=== PATIENT | female | born 1945 | race Caucasian/White ===

== ENCOUNTER → 2016-10-23 | Outpatient (CLI) | payer MEDICARE ==
[~2016-10-23] MED LIST: ACET650S12 PR; ACET650S21 PO; ACID1TAB PO; ALBU2.5V11 NEB; ALPR-475 PO; AMIO200T42 PO; AMLO10TA2 PO; AMLO5TAB2 PO; ASPI-515 PO; ATOR40TA78 PO; BISA10SU2 PR; BISA5TAB5 PO; CHOL200040 PO; DEXT4TAB PO; DOCU100C8 PO; ERGO500017 PO; FENO135C4 PO; FENO145T13 PO; FENO145T32 PO; FLUC100T4 PO; FURO20TA3 PO; GLUC1VIA4 IM; GUAI400T26 PO; HYDR-3307 PO; INSU100C5 SQ-INSULIN; LISI40TA PO; LOVA20TA2 PO; MAGN400T26 PO; METF850T2 PO; METO50TA82 PO; METR500T PO; OMEG300C5 PO; ONDA4SOL2 IV; ONDA4TAB7 PO; OXYC1TAB7 PO; OXYC5CAP4 PO; PANT40TA3 PO; PREN1TAB60 PO; PROC5TAB40 PO; TEMA15CA6 PO; TRAM50TA2 PO; TRAZ50TA18 PO; ZOLP10TA5 PO; dextrose 50% IVPush
== END | disposition home or self-care (01) ==
LOC: CVU 13:18
PROVIDERS: ATTEND Internal Medicine Cardiovascular Disease
DX: I08.1 Rheumatic disorders of both mitral and tricuspid valves (principal); E78.5 Hyperlipidemia, unspecified; I48.91 Unspecified atrial fibrillation; E11.9 Type 2 diabetes mellitus without complications; I10 Essential (primary) hypertension; I37.1 Nonrheumatic pulmonary valve insufficiency; I51.7 Cardiomegaly; Z95.2 Presence of prosthetic heart valve; Z87.891 Personal history of nicotine dependence
CPT/HCPCS: 93306

== ENCOUNTER 2016-10-31 07:39 | Emergency (ER) | payer MEDICARE ==
[~2016-10-31] VITALS: Ht 175.3 cm; Wt 113.0 kg
[2016-10-31] MEDS ORDERED: PLEASE ENTER HEIGHT AND WEIGHT MC SCH (08:00)
[2016-10-31] MEDS ORDERED: SODIUM CHLORIDE 0.9% 1,000ML IVBOLUS ONE (08:00)
[2016-10-31 08:34] LABS: ASPARTATE AMINO TRANSFERASE 37 U/L (15-37); BLOOD UREA NITROGEN 29 mg/dL (7-18)
[2016-10-31] MEDS ORDERED: ONDANSETRON 2MG/ML, 2ML ONE (09:20)
[2016-10-31] MEDS ORDERED: ONDANSETRON 2MG/ML, 2ML IVPush ONE (10:00)
[2016-10-31 10:45] VITALS: BP 137/67
== END 2016-10-31 11:36 | disposition home or self-care (01) ==
LOC: ED 08:48
DX: R19.7 Diarrhea, unspecified (principal); I11.0 Hypertensive heart disease with heart failure; I50.9 Heart failure, unspecified; E11.9 Type 2 diabetes mellitus without complications; Z90.49 Acquired absence of other specified parts of digestive tract; Z98.51 Tubal ligation status; Z87.891 Personal history of nicotine dependence; R10.84 Generalized abdominal pain
CPT/HCPCS: 36415; 80053; 81001; 85025; 87086; 87324; 89055; 96361; 96374; 99285; J2405; J7030

== ENCOUNTER 2017-01-05 17:56 | Inpatient (IN) | payer MEDICARE ==
[~2017-01-05] VITALS: Ht 175.3 cm; Wt 124.4 kg
[2017-01-05] MEDS ORDERED: SODIUM CHLORIDE 0.9% 1,000 ML IV ONE (18:53)
[2017-01-05] MEDS ORDERED: SODIUM CHLORIDE FLUSH 10ML SYR IVF ONE (19:00)
[2017-01-05] MEDS ORDERED: SODIUM CHLORIDE 0.9% 1,000ML IVBOLUS ONE (19:00)
[2017-01-05] MEDS ORDERED: PANTOPRAZOLE 80 MG in SODIUM CHLORIDE 0.9% 50 ML IVPB ONE (19:00)
[2017-01-05] MEDS ORDERED: ONDANSETRON 2MG/ML, 2ML IVPush ONE (19:00)
[2017-01-05] MEDS ORDERED: PANTOPRAZOLE 80 MG in SODIUM CHLORIDE 0.9% 100 ML IV SCH (19:15)
[2017-01-05 19:26] LABS: ASPARTATE AMINO TRANSFERASE 24 U/L (15-37); BLOOD UREA NITROGEN 43 mg/dL (7-18)
[2017-01-05 19:30] LABS: IS PT STATUS REG ER OR PRE ER? YES
[2017-01-05] MEDS ORDERED: OMEP40CA6 PO (20:30)
[2017-01-05] MEDS ORDERED: METF850T2 PO (20:30)
[2017-01-05] MEDS ORDERED: OXYC1TAB7 PO (20:30)
[2017-01-05] MEDS ORDERED: WARF1TAB7 PO (20:30)
[2017-01-05] MEDS ORDERED: POTA20TA14 PO (20:30)
[2017-01-05] MEDS ORDERED: PHYTONADIONE 5 MG TABLET PO ONE (20:30)
[2017-01-05] MEDS ORDERED: ONDANSETRON 2MG/ML, 2ML IV PRN (21:00)
[2017-01-05] MEDS: INSULIN REGULAR 100 UNITS/ML, 3ML VIAL SQ-INSULIN SCH (21:00)
[2017-01-05 21:03] VITALS: BP 152/66
[2017-01-05] MEDS: PANTOPRAZOLE 80 MG in SODIUM CHLORIDE 0.9% 100 ML IV SCH (23:00)
[2017-01-05 23:25] VITALS: BP 136/75
[2017-01-06] VITALS (14 sets, daily range): BP systolic 126–169; BP diastolic 63–83
[2017-01-06 03:12] LABS: PATH.CAST-FLAG NOT PRESENT; SPERM-FLAG NOT PRESENT; SRC-FLAG NOT PRESENT; XTAL-FLAG NOT PRESENT; YLC-FLAG NOT PRESENT
[2017-01-06] MEDS: INSULIN REGULAR 100 UNITS/ML, 3ML VIAL SQ-INSULIN SCH ×3 (07:45→17:04)
[2017-01-06] MEDS: PANTOPRAZOLE 80 MG in SODIUM CHLORIDE 0.9% 100 ML IV SCH ×2 (09:42→20:33)
[2017-01-07] VITALS (18 sets, daily range): BP systolic 113–146; BP diastolic 55–76
[2017-01-07] MEDS: PANTOPRAZOLE 80 MG in SODIUM CHLORIDE 0.9% 100 ML IV SCH ×2 (05:58→15:00)
[2017-01-07] MEDS: INSULIN REGULAR 100 UNITS/ML, 3ML VIAL SQ-INSULIN SCH ×5 (06:00→20:42)
[2017-01-07] MEDS ORDERED: PROPOFOL 10 MG/ML, 20ML ONE (11:10)
[2017-01-07] MEDS ORDERED: ALBUTEROL SULFATE 2.5 MG/3 ML NPPB PRN (12:00)
[2017-01-07] MEDS ORDERED: PROMETHAZINE 25 MG/ML, 1ML IV PRN (12:00)
[2017-01-07] MEDS ORDERED: HYDROmorphone 1 MG/ML, 1ML IV PRN (12:00)
[2017-01-07] MEDS ORDERED: OXYcodone 5 MG/5 ML ORAL.SOL UDC PO PRN (12:00)
[2017-01-07] MEDS ORDERED: hydrALAzine 20 MG/ML, 1ML IV PRN (12:00)
[2017-01-07] MEDS ORDERED: ONDANSETRON 2MG/ML, 2ML IVPush PRN (12:00)
[2017-01-07] MEDS ORDERED: MIDAZOLAM 1 MG/ML, 2ML IV PRN (12:00)
[2017-01-07] MEDS ORDERED: FENTANYL PF 100 MCG/2ML IV PRN (12:00)
[2017-01-07] MEDS ORDERED: MEPERIDINE/PF 25MG/0.5ML IVPush PRN (12:00)
[2017-01-07] MEDS ORDERED: LABETALOL 5MG/ML, 20ML IV PRN (12:00)
[2017-01-07 14:00] LABS: BLOOD UREA NITROGEN 25 mg/dL (7-18)
[2017-01-07 14:32] LABS: ANISOCYTOSIS 1+; MICROCYTOSIS 1+; POLYCHROMASIA 1+
[2017-01-07] MEDS ORDERED: ALBUTEROL SULFATE 2.5MG/0.5ML NEB PRN (16:30)
[2017-01-07] MEDS: METOPROLOL TARTRATE 50 MG TABLET PO SCH ×2 (17:31→22:07)
[2017-01-07] MEDS: ATORVASTATIN 40 MG TABLET PO SCH (20:40)
[2017-01-07] MEDS: PANTOPROZOLE 40MG TABLET PO SCH (20:40)
[2017-01-07] MEDS: FENOFIBRATE 145 MG TABLET PO SCH (20:40)
[2017-01-08 01:32] VITALS: BP 126/67
[2017-01-08] MEDS: METOPROLOL TARTRATE 50 MG TABLET PO SCH ×4 (05:49→21:05)
[2017-01-08 06:09] LABS: BLOOD UREA NITROGEN 23 mg/dL (7-18)
[2017-01-08] MEDS: INSULIN REGULAR 100 UNITS/ML, 3ML VIAL SQ-INSULIN SCH ×4 (07:00→21:00)
[2017-01-08 07:07] VITALS: BP 122/74
[2017-01-08] MEDS: AMIODARONE 200 MG TABLET PO SCH (07:46)
[2017-01-08] MEDS: PANTOPROZOLE 40MG TABLET PO SCH ×2 (07:46→21:05)
[2017-01-08] MEDS ORDERED: SODIUM CHLORIDE 0.9% 1,000 ML IV SCH ×2 (11:00→11:38)
[2017-01-08 11:10] VITALS: BP 140/64
[2017-01-08] MEDS ORDERED: ACETAMINOPHEN 325 MG TABLET PO PRN (13:00)
[2017-01-08 13:26] VITALS: BP 137/79
[2017-01-08 16:41] VITALS: BP 146/73
[2017-01-08] MEDS: FERROUS SULFATE 325 MG TABLET PO SCH (16:52)
[2017-01-08 19:14] VITALS: BP 125/78
[2017-01-08] MEDS: FENOFIBRATE 145 MG TABLET PO SCH (21:05)
[2017-01-08] MEDS: ATORVASTATIN 40 MG TABLET PO SCH (21:05)
[2017-01-09 01:13] VITALS: BP 150/71
[2017-01-09] MEDS: METOPROLOL TARTRATE 50 MG TABLET PO SCH ×3 (05:53→22:08)
[2017-01-09 06:03] LABS: BLOOD UREA NITROGEN 20 mg/dL (7-18)
[2017-01-09 07:48] VITALS: BP 119/69
[2017-01-09] MEDS: INSULIN REGULAR 100 UNITS/ML, 3ML VIAL SQ-INSULIN SCH ×4 (08:02→21:00)
[2017-01-09] MEDS ORDERED: SODIUM CHLORIDE 0.9% 1,000 ML IV ONE (10:00)
[2017-01-09] MEDS: FERROUS SULFATE 325 MG TABLET PO SCH ×2 (10:15→17:13)
[2017-01-09] MEDS: AMIODARONE 200 MG TABLET PO SCH (10:15)
[2017-01-09] MEDS: PANTOPROZOLE 40MG TABLET PO SCH ×2 (10:15→22:07)
[2017-01-09 13:16] VITALS: BP 149/71
[2017-01-09 18:50] VITALS: BP 147/72
[2017-01-09] MEDS: FENOFIBRATE 145 MG TABLET PO SCH (22:07)
[2017-01-09] MEDS: ATORVASTATIN 40 MG TABLET PO SCH (22:08)
[2017-01-10 00:05] VITALS: BP 136/73
[2017-01-10] MEDS: METOPROLOL TARTRATE 50 MG TABLET PO SCH ×2 (04:54→09:49)
[2017-01-10 05:23] LABS: BLOOD UREA NITROGEN 19 mg/dL (7-18)
[2017-01-10] MEDS: INSULIN REGULAR 100 UNITS/ML, 3ML VIAL SQ-INSULIN SCH ×2 (07:00→11:00)
[2017-01-10] MEDS: AMIODARONE 200 MG TABLET PO SCH (09:49)
[2017-01-10] MEDS: PANTOPROZOLE 40MG TABLET PO SCH (09:49)
[2017-01-10] MEDS: FERROUS SULFATE 325 MG TABLET PO SCH (09:49)
[2017-01-10 09:56] VITALS: BP 153/63
[2017-01-10] MEDS ORDERED: FERR325T20 PO (13:21)
[2017-01-10] MEDS ORDERED: PANT40TA3 PO (13:21)
== END 2017-01-10 16:51 | disposition home or self-care (01) | DRG 391 ==
LOC: ED 18:24 → SUATTDRO 20:56 → EDIP 21:10 → 3NE 23:45 → DCLOUNGE 01-10 15:51
PROVIDERS: ADMIT Hospitalist; ATTEND Internal Medicine
PROC: 0D568ZZ Destruction of Stomach, Via Natural or Artificial Opening Endoscopic (ICD-10-PCS; principal; 2017-01-05)
PROC: 0DJ08ZZ Inspection of Upper Intestinal Tract, Via Natural or Artificial Opening Endoscopic (ICD-10-PCS; 2017-01-05)
PROC: 30233N1 Transfusion of Nonautologous Red Blood Cells into Peripheral Vein, Percutaneous Approach (ICD-10-PCS; 2017-01-07)
PROC: 30233L1 Transfusion of Nonautologous Fresh Plasma into Peripheral Vein, Percutaneous Approach (ICD-10-PCS; 2017-01-07)
PROC: 30233K1 Transfusion of Nonautologous Frozen Plasma into Peripheral Vein, Percutaneous Approach (ICD-10-PCS; 2017-01-07)
DX: K31.819 Angiodysplasia of stomach and duodenum without bleeding (principal); N17.0 Acute kidney failure with tubular necrosis; K92.1 Melena; D62 Acute posthemorrhagic anemia; I13.0 Hypertensive heart and chronic kidney disease with heart failure and stage 1 through stage 4 chronic kidney disease, or unspecified chronic kidney disease; I50.32 Chronic diastolic (congestive) heart failure; Z68.41 Body mass index [BMI] 40.0-44.9, adult; E11.22 Type 2 diabetes mellitus with diabetic chronic kidney disease; E66.01 Morbid (severe) obesity due to excess calories; E78.5 Hyperlipidemia, unspecified; I35.0 Nonrheumatic aortic (valve) stenosis; I99.8 Other disorder of circulatory system; I78.1 Nevus, non-neoplastic; N18.2 Chronic kidney disease, stage 2 (mild); N20.0 Calculus of kidney; R79.1 Abnormal coagulation profile; Z79.01 Long term (current) use of anticoagulants; Z87.891 Personal history of nicotine dependence; Z95.2 Presence of prosthetic heart valve; Z91.013 Allergy to seafood; I25.2 Old myocardial infarction; Z95.3 Presence of xenogenic heart valve; Z90.710 Acquired absence of both cervix and uterus
CPT/HCPCS: 36415; 74022; 80048; 80053; 81001; 82040; 82962; 83605; 83735; 84100; 84484; 85014; 85018; 85025; 85610; 85730; 86850; 86900; 86923; 93005; 96365; 96366; 96375; J2405; J2704; C9113; J7030; P9016; P9017

== ENCOUNTER 2017-02-21 10:37 | Observation (INO) | payer MEDICARE ==
[~2017-02-21] VITALS: Ht 175.3 cm; Wt 118.0 kg
[~2017-02-21 10:37] MED LIST changes: +DOCU100C33 PO; -DOCU100C8 PO; +FERR325T18 PO; -GUAI400T26 PO; +GUAI400T66 PO; +OMEP40CA6 PO; +OXYC5CAP2 PO; -OXYC5CAP4 PO; +POTA20TA14 PO; +WARF1TAB7 PO
[2017-02-21] MEDS: SODIUM CHLORIDE 0.9% 1,000 ML IV SCH ×2 (11:00→19:00)
[2017-02-21] MEDS ORDERED: FENTANYL PF 100 MCG/2ML ONE (11:10)
[2017-02-21] MEDS ORDERED: CEFAZOLIN PMX 1GM/50ML 50 ML ONE (11:10)
[2017-02-21] MEDS ORDERED: CEFAZOLIN 1,000 MG ONE (11:10)
[2017-02-21] MEDS ORDERED: LIDOCAINE 2%, 20ML ONE (11:10)
[2017-02-21] MEDS ORDERED: MIDAZOLAM 1 MG/ML, 5ML ONE (11:10)
[2017-02-21] MEDS ORDERED: PLEASE ENTER HEIGHT AND WEIGHT MC SCH (11:30)
[2017-02-21 11:40] LABS: HEMATOCRIT 35.6 % (34.6-47.8); HEMOGLOBIN 11.5 g/dL (11.7-16.4); WHITE BLOOD COUNT 5.4 x10^3/uL (3.4-10)
[2017-02-21] MEDS ORDERED: AMIO200T42 PO (11:44)
[2017-02-21] MEDS ORDERED: AMLO10TA2 PO (11:45)
[2017-02-21] MEDS ORDERED: FENO134C PO (11:46)
[2017-02-21] MEDS ORDERED: METO25TA35 PO (11:47)
[2017-02-21] MEDS ORDERED: OMEP40CA6 PO (11:49)
[2017-02-21] MEDS ORDERED: METO25TA4 PO (11:49)
[2017-02-21] MEDS ORDERED: METF850T2 PO (11:50)
[2017-02-21 11:53] LABS: ASPARTATE AMINO TRANSFERASE 26 U/L (15-37); BLOOD UREA NITROGEN 19 mg/dL (7-18)
[2017-02-21] MEDS ORDERED: iron PO (11:53)
[2017-02-21] MEDS ORDERED: [UNRECOGNIZED DRUG - CODE] PO (11:54)
[2017-02-21] MEDS ORDERED: DIPHENHYDRAMINE 50 MG/ML, 1ML ONE (11:59)
[2017-02-21] MEDS ORDERED: ZOLPIDEM 5MG TABLET PO PRN (13:00)
[2017-02-21] MEDS ORDERED: ACETAMINOPHEN 325 MG TABLET PO PRN (13:00)
[2017-02-21 13:36] VITALS: BP 122/84
[2017-02-21 14:00] VITALS: BP 144/84
[2017-02-21] MEDS: OXYCODONE/APAP MC SCH ×2 (15:00→23:00)
[2017-02-21] MEDS: METOPROLOL TARTRATE 25 MG TABLET PO SCH (16:44)
[2017-02-21] MEDS: metFORMIN 850 MG TABLET PO SCH (16:44)
[2017-02-21] MEDS: HYDROcodone/APAP 5/325 TABLET PO PRN (16:44)
[2017-02-21] MEDS: CEFAZOLIN PMX 1GM/50ML 50 ML IVPB SCH (20:13)
[2017-02-21] MEDS: SODIUM CHLORIDE FLUSH 10ML SYR IVF SCH (20:14)
[2017-02-21 20:17] VITALS: BP 145/77
[2017-02-22] MEDS: HYDROcodone/APAP 5/325 TABLET PO PRN ×2 (00:07→08:48)
[2017-02-22 02:30] VITALS: BP 157/73
[2017-02-22] MEDS: SODIUM CHLORIDE 0.9% 1,000 ML IV SCH ×2 (03:00→08:49)
[2017-02-22] MEDS: METOPROLOL TARTRATE 25 MG TABLET PO SCH ×2 (05:44→08:49)
[2017-02-22] MEDS: CEFAZOLIN PMX 1GM/50ML 50 ML IVPB SCH (05:44)
[2017-02-22] MEDS: OXYCODONE/APAP MC SCH (07:00)
[2017-02-22] MEDS ORDERED: OMEPRAZOLE 20 MG CAPSULE.DR PO SCH (07:30)
[2017-02-22] MEDS: metFORMIN 850 MG TABLET PO SCH (08:48)
[2017-02-22] MEDS: SODIUM CHLORIDE FLUSH 10ML SYR IVF SCH (08:49)
[2017-02-22 08:52] VITALS: BP 149/75
[2017-02-22] MEDS ORDERED: AMIODARONE 200 MG TABLET PO SCH (09:00)
[2017-02-22] MEDS ORDERED: FENOFIBRATE 145 MG TABLET PO SCH (09:00)
[2017-02-22] MEDS ORDERED: AMLODIPINE 5 MG TABLET PO SCH (09:00)
[2017-02-22] MEDS ORDERED: OXYcodone/APAP 5/325MG TABLET PO PRN (09:00)
[2017-02-22] MEDS ORDERED: FERROUS SULFATE 325 MG TABLET PO SCH (09:00)
== END 2017-02-22 11:27 | disposition home or self-care (01) ==
LOC: CACL 10:37 → ORIP 12:54 → 5SO 13:09
PROVIDERS: ADMIT Internal Medicine Cardiovascular Disease; ATTEND Internal Medicine Cardiovascular Disease
DX: I49.5 Sick sinus syndrome (principal); I44.2 Atrioventricular block, complete; I48.91 Unspecified atrial fibrillation; I10 Essential (primary) hypertension; E78.5 Hyperlipidemia, unspecified; E11.9 Type 2 diabetes mellitus without complications; Z95.2 Presence of prosthetic heart valve
CPT/HCPCS: 33208; 36005; 36415; 71010; 80053; 85025; 85610; 96365; 96366; 99156; 99157; C1779; C1785; C1892; G0378; J0690; J1200; J2250; J3010; J3490; Q9967

== ENCOUNTER → 2017-05-13 | Outpatient (CLI) | payer MEDICARE ==
[~2017-05-13] MED LIST changes: +FENO134C PO; +METO25TA35 PO; +METO25TA4 PO; +[UNRECOGNIZED DRUG - CODE] PO; +iron PO
== END | disposition home or self-care (01) ==
LOC: CFH 11:13
PROVIDERS: ATTEND Nurse Practitioner Family
DX: Z12.31 Encounter for screening mammogram for malignant neoplasm of breast (principal)
CPT/HCPCS: G0202

== ENCOUNTER → 2017-10-23 | Outpatient (CLI) | payer MEDICARE ==
[~2017-10-23] MED LIST changes: +ALBU8.5H8 INH; +ATOR20TA PO; -FENO145T13 PO; +FENO145T30 PO; +FERR324T5 PO; +PANT40TA5 PO; +PRED20TA PO; -WARF1TAB7 PO; +WARF1TAB74 PO
== END | disposition home or self-care (01) ==
LOC: CVU 12:23
PROVIDERS: ATTEND Internal Medicine Cardiovascular Disease
DX: Z95.2 Presence of prosthetic heart valve (principal); I11.9 Hypertensive heart disease without heart failure; E78.5 Hyperlipidemia, unspecified; Z95.3 Presence of xenogenic heart valve; Z95.0 Presence of cardiac pacemaker
CPT/HCPCS: 93306

== ENCOUNTER 2018-01-18 06:23 | Inpatient (IN) | payer MEDICARE ==
[~2018-01-18] VITALS: Ht 167.6 cm; Wt 123.8 kg
[~2018-01-18 06:23] MED LIST changes: +TRAZ-136 PO; -TRAZ50TA18 PO
[2018-01-18] MEDS ORDERED: MORPHINE SULFATE 4 MG/ML, 1ML ONE (06:57)
[2018-01-18] MEDS ORDERED: ONDANSETRON 2MG/ML, 2ML ONE (06:57)
[2018-01-18] MEDS ORDERED: SODIUM CHLORIDE FLUSH 10ML SYR IVF ONE (07:00)
[2018-01-18] MEDS ORDERED: ONDANSETRON 2MG/ML, 2ML IVPush ONE (07:00)
[2018-01-18] MEDS ORDERED: MORPHINE SULFATE 4 MG/ML, 1ML IVPush PRN (07:00)
[2018-01-18 07:12] LABS: BASOPHILS # (AUTO) 0.21 x10^3/uL (0-0.1); BASOPHILS % (AUTO) 2 % (0-1); EOSINOPHILS # (AUTO) 0.42 x10^3/uL (0-0.4); EOSINOPHILS % (AUTO) 3 % (1-7); LYMPHOCYTES # (AUTO) 1.79 x10^3/uL (1-3.4); LYMPHOCYTES % (AUTO) 14 % (22-44); MD NO; MEAN CORPUSCULAR HEMOGLOBIN 27.3 pg (27.0-34.8); MEAN CORPUSCULAR HGB CONC 32.6 g/dL (32.4-35.8); MEAN CORPUSCULAR VOLUME 83.6 fL (80-100); MEAN PLATELET VOLUME 7.9 fL (7.4-10.4); MONOCYTES # (AUTO) 1.03 x10^3/uL (0.2-0.8); MONOCYTES % (AUTO) 8 % (2-9); NEUTROPHILS # (AUTO) 9.17 x10^3/uL (1.8-6.8); NEUTROPHILS % (AUTO) 73 % (42-75); PLATELET COUNT 360 x10^3/uL (130-400); RED BLOOD COUNT 4.91 x10^6/uL (3.82-5.3); RED CELL DISTRIBUTION WIDTH 16.1 % (9.6-15.2)
[2018-01-18 07:15] LABS: ALANINE AMINOTRANSFERASE 22 U/L (12-78); ALBUMIN 3.9 g/dL (3.4-5.0); ANION GAP 9 mmol/L (5-15); CALCIUM 9.4 mg/dL (8.5-10.1); CHLORIDE 111 mmol/L (98-107); CREATININE 1.96 mg/dL (0.55-1.02)
[2018-01-18 07:18] LABS: ALKALINE PHOSPHATASE 60 U/L (45-117); BILIRUBIN,TOTAL 0.4 mg/dL (0.2-1.0); TOTAL PROTEIN 8.5 g/dL (6.4-8.2)
[2018-01-18 07:31] LABS: MICROSCOPIC INDICATED
[2018-01-18 07:34] LABS: CULTURE INDICATED? YES
[2018-01-18] MEDS ORDERED: SODIUM CHLORIDE 0.9% 1,000 ML IV ONE (07:55)
[2018-01-18] MEDS ORDERED: SODIUM CHLORIDE 0.9% 1,000ML IVBOLUS ONE (08:00)
[2018-01-18] MEDS ORDERED: PANT40TA5 PO (08:15)
[2018-01-18] MEDS ORDERED: BUSP7.5T3 PO (08:18)
[2018-01-18] MEDS ORDERED: BUPR75TA6 PO (08:19)
[2018-01-18] MEDS ORDERED: CEFTRIAXONE 1,000 MG in SODIUM CHLORIDE 0.9% 50 ML IV ONE (09:00)
[2018-01-18] MEDS ORDERED: CEFTRIAXONE PMX 1GM/50ML 50 ML ONE (09:21)
[2018-01-18] MEDS ORDERED: SODIUM CHLORIDE FLUSH 10ML SYR IVF PRN (10:00)
[2018-01-18 10:21] VITALS: BP 122/75
[2018-01-18] MEDS ORDERED: CEFTRIAXONE 1,000 MG in SODIUM CHLORIDE 0.9% 50 ML IV SCH (11:00)
[2018-01-18 13:22] VITALS: BP 114/70
[2018-01-18] MEDS ORDERED: SODIUM CHLORIDE 0.9% 1,000 ML IV SCH (14:43)
[2018-01-18] MEDS ORDERED: LABETALOL 5MG/ML, 20ML IVPush PRN (15:00)
[2018-01-18] MEDS ORDERED: OXYcodone/APAP 7.5/325MG TABLET PO PRN (15:00)
[2018-01-18] MEDS ORDERED: ALBUTEROL SULFATE INH PRN (15:00)
[2018-01-18] MEDS ORDERED: hydrALAzine 20 MG/ML, 1ML IVPush PRN (15:00)
[2018-01-18 19:54] VITALS: BP 106/66
[2018-01-18] MEDS: FERROUS SULFATE PO SCH (20:05)
[2018-01-18] MEDS: AMLODIPINE 5 MG TABLET PO SCH (20:08)
[2018-01-18] MEDS: ATORVASTATIN 20 MG TABLET PO SCH (20:08)
[2018-01-18] MEDS: METOPROLOL TARTRATE 25 MG TABLET PO SCH (20:08)
[2018-01-18] MEDS: SODIUM CHLORIDE 0.9% 1,000 ML IV SCH (20:23)
[2018-01-18] MEDS ORDERED: OXYcodone/APAP 5/325MG TABLET PO PRN (20:30)
[2018-01-19 01:32] VITALS: BP 126/74
[2018-01-19] MEDS: SODIUM CHLORIDE 0.9% 1,000 ML IV SCH ×4 (03:03→22:04)
[2018-01-19 04:52] LABS: BASOPHILS # (AUTO) 0.08 x10^3/uL (0-0.1); BASOPHILS % (AUTO) 1 % (0-1); EOSINOPHILS % (AUTO) 3 % (1-7); LYMPHOCYTES # (AUTO) 1.32 x10^3/uL (1-3.4); LYMPHOCYTES % (AUTO) 15 % (22-44); MD NO; MEAN CORPUSCULAR HEMOGLOBIN 28.2 pg (27.0-34.8); MEAN CORPUSCULAR HGB CONC 32.9 g/dL (32.4-35.8); MEAN CORPUSCULAR VOLUME 85.8 fL (80-100); MEAN PLATELET VOLUME 7.9 fL (7.4-10.4); MONOCYTES % (AUTO) 8 % (2-9); NEUTROPHILS # (AUTO) 6.31 x10^3/uL (1.8-6.8); NEUTROPHILS % (AUTO) 73 % (42-75); PLATELET COUNT 267 x10^3/uL (130-400); RED CELL DISTRIBUTION WIDTH 16.4 % (9.6-15.2)
[2018-01-19 05:03] LABS: ALBUMIN 3.1 g/dL (3.4-5.0); ANION GAP 8 mmol/L (5-15); CALCIUM 7.9 mg/dL (8.5-10.1); CHLORIDE 115 mmol/L (98-107)
[2018-01-19 05:12] LABS: CREATININE 1.65 mg/dL (0.55-1.02)
[2018-01-19 07:25] VITALS: BP 112/74
[2018-01-19] MEDS: METOPROLOL TARTRATE 25 MG TABLET PO SCH ×2 (09:00→19:33)
[2018-01-19] MEDS: PANTOPROZOLE 40MG TABLET PO SCH (09:00)
[2018-01-19] MEDS: BUSPIRONE 5 MG TABLET PO SCH (09:00)
[2018-01-19] MEDS: AMLODIPINE 5 MG TABLET PO SCH ×2 (09:00→19:33)
[2018-01-19] MEDS: FENOFIBRATE MICRONIZED 134 MG PO SCH (09:00)
[2018-01-19] MEDS: BUPROPION 75 MG TABLET PO SCH (09:00)
[2018-01-19] MEDS: FERROUS SULFATE PO SCH ×2 (09:00→19:32)
[2018-01-19 14:11] VITALS: BP 143/75
[2018-01-19] MEDS ORDERED: SODIUM CHLORIDE 0.9% 1,000 ML IV SCH (14:43)
[2018-01-19 19:18] VITALS: BP 141/80
[2018-01-19] MEDS: ATORVASTATIN 20 MG TABLET PO SCH (19:32)
[2018-01-19] MEDS: MORPHINE SULFATE 4 MG/ML, 1ML IVPush PRN (22:56)
[2018-01-20 04:02] VITALS: BP 133/78
[2018-01-20] MEDS: SODIUM CHLORIDE 0.9% 1,000 ML IV SCH (04:14)
[2018-01-20 04:21] LABS: ALBUMIN 3.1 g/dL (3.4-5.0); ANION GAP 6 mmol/L (5-15); CALCIUM 8.6 mg/dL (8.5-10.1); CHLORIDE 116 mmol/L (98-107); CREATININE 1.35 mg/dL (0.55-1.02)
[2018-01-20] MEDS: MORPHINE SULFATE 4 MG/ML, 1ML IVPush PRN (05:11)
[2018-01-20] MEDS ORDERED: ONDANSETRON 2MG/ML, 2ML IVPush PRN (08:00)
[2018-01-20 08:15] VITALS: BP 129/79
[2018-01-20] MEDS: FERROUS SULFATE PO SCH (09:00)
[2018-01-20] MEDS: BUSPIRONE 5 MG TABLET PO SCH (09:00)
[2018-01-20] MEDS: FENOFIBRATE MICRONIZED 134 MG PO SCH (09:00)
[2018-01-20] MEDS: PANTOPROZOLE 40MG TABLET PO SCH (09:00)
[2018-01-20] MEDS: BUPROPION 75 MG TABLET PO SCH (09:00)
[2018-01-20] MEDS: AMLODIPINE 5 MG TABLET PO SCH (09:00)
[2018-01-20] MEDS: METOPROLOL TARTRATE 25 MG TABLET PO SCH (09:00)
[2018-01-20] MEDS ORDERED: ONDA4TAB10 PO (14:43)
[2018-01-20] MEDS ORDERED: DOCU-131 PO (14:48)
[2018-01-20] MEDS ORDERED: SIME180C4 PO (14:48)
[2018-01-20 14:59] VITALS: BP 156/80
[2018-01-20 17:45] VITALS: BP 150/75
== END 2018-01-20 18:04 | disposition home or self-care (01) | DRG 438 ==
LOC: ED 08:37 → EDIP 09:52 → 3NW 10:20
PROVIDERS: ADMIT Hospitalist; ATTEND Hospitalist
DX: K85.90 Acute pancreatitis without necrosis or infection, unspecified (principal); N17.0 Acute kidney failure with tubular necrosis; N39.0 Urinary tract infection, site not specified; I13.0 Hypertensive heart and chronic kidney disease with heart failure and stage 1 through stage 4 chronic kidney disease, or unspecified chronic kidney disease; Z68.41 Body mass index [BMI] 40.0-44.9, adult; I50.32 Chronic diastolic (congestive) heart failure; K29.80 Duodenitis without bleeding; N20.0 Calculus of kidney; E66.01 Morbid (severe) obesity due to excess calories; E11.22 Type 2 diabetes mellitus with diabetic chronic kidney disease; E78.5 Hyperlipidemia, unspecified; I25.10 Atherosclerotic heart disease of native coronary artery without angina pectoris; I25.2 Old myocardial infarction; J44.9 Chronic obstructive pulmonary disease, unspecified; N18.9 Chronic kidney disease, unspecified; Z82.49 Family history of ischemic heart disease and other diseases of the circulatory system; Z87.442 Personal history of urinary calculi; Z90.49 Acquired absence of other specified parts of digestive tract; Z95.2 Presence of prosthetic heart valve; Z95.0 Presence of cardiac pacemaker; Z87.891 Personal history of nicotine dependence; Z71.3 Dietary counseling and surveillance; Z95.5 Presence of coronary angioplasty implant and graft
CPT/HCPCS: 36415; 74150; 74176; 76700; 80053; 80069; 81001; 82962; 83605; 83690; 84145; 85025; 86140; 87040; 87086; 96365; 96375; J0696; J2405; J7030

== ENCOUNTER 2018-08-16 05:04 | Inpatient (IN) | payer MEDICARE ==
[~2018-08-16] VITALS: Ht 170.2 cm; Wt 126.5 kg
[~2018-08-16 05:04] MED LIST changes: +AMLO-150 PO; -AMLO10TA2 PO; +AMLO10TA8 PO; -AMLO5TAB2 PO; +BUPR75TA6 PO; +BUSP7.5T3 PO; +DEXT-230 PO; -DEXT4TAB PO; +DOCU-131 PO; +METF850T10 PO; -METF850T2 PO; +ONDA4TAB10 PO; +SIME180C4 PO; -TRAZ-136 PO; +TRAZ50TA66 PO
--- NOTE | 2018-08-16 05:24 | NUR ---
VISHAL. REPORT RECEIVED FROM EMS. PT C/O SOB X 3DAYS WITH BILATERAL CHEST PAIN (ON PACEMAKER SITE). PT HAS 3L/MIN OXY AT HOME. PT HAS HX OF COPD/CHF/HTN/HLD. PT'S AOX4. RESPS EVEN AND UNLABORED. ALL MONITOR IN PLACE. CALL LIGHT WITHIN REACH. EDMD AT BEDSIDE TO ASSESS AT THIS TIME.
[2018-08-16] MEDS ORDERED: LISI-170 PO (05:27)
[2018-08-16] MEDS ORDERED: SODIUM CHLORIDE FLUSH 10ML SYR IVF ONE (05:30)
[2018-08-16] MEDS ORDERED: RIVA20TA PO (05:32)
[2018-08-16 06:10] LABS: MEAN CORPUSCULAR HEMOGLOBIN 24.9 pg (27.0-34.8); MEAN CORPUSCULAR VOLUME 77.8 fL (80-100); MEAN PLATELET VOLUME 7.3 fL (7.4-10.4); PLATELET COUNT 341 x10^3/uL (130-400); RED BLOOD COUNT 2.84 x10^6/uL (3.82-5.3); RED CELL DISTRIBUTION WIDTH 18.3 % (9.6-15.2)
--- NOTE | 2018-08-16 06:15 | NUR ---
HCT 22.1/HGB 7.1. EDMD NOTIFIED.
[2018-08-16 06:20] LABS: INTERNATIONAL NORMALIZED RATIO 1.36 (0.93-1.1); PROTHROMBIN TIME 14.1 Seconds (9.6-11.5)
[2018-08-16 06:21] LABS: ALANINE AMINOTRANSFERASE 15 U/L (12-78); ALBUMIN 3.4 g/dL (3.4-5.0); ANION GAP 4 mmol/L (5-15); CALCIUM 8.9 mg/dL (8.5-10.1); CHLORIDE 111 mmol/L (98-107); CREATININE 2.24 mg/dL (0.55-1.02)
[2018-08-16 06:25] LABS: ALKALINE PHOSPHATASE 100 U/L (45-117); BILIRUBIN,TOTAL 0.4 mg/dL (0.2-1.0); TOTAL PROTEIN 7.8 g/dL (6.4-8.2); TROPONIN I < 0.015 ng/mL (0.000-0.045)
[2018-08-16 06:27] LABS: BASOPHILS # (AUTO) 0.04 x10^3/uL (0-0.1); BASOPHILS % (AUTO) 0 % (0-1); EOSINOPHILS # (AUTO) 0.17 x10^3/uL (0-0.4); EOSINOPHILS % (AUTO) 2 % (1-7); LYMPHOCYTES # (AUTO) 0.66 x10^3/uL (1-3.4); LYMPHOCYTES % (AUTO) 6 % (22-44); MD SCAN; MONOCYTES # (AUTO) 0.73 x10^3/uL (0.2-0.8); MONOCYTES % (AUTO) 7 % (2-9); NEUTROPHILS # (AUTO) 9.31 x10^3/uL (1.8-6.8); NEUTROPHILS % (AUTO) 85 % (42-75)
--- NOTE | 2018-08-16 06:53 | NUR ---
REPORT GIVEN TO EUGENIO EID.
--- NOTE | 2018-08-16 07:15 | NUR ---
paged dr simpson for dr pierce
--- NOTE | 2018-08-16 07:16 | NUR ---
GOT PT UP TO BEDSIDE COMMODE TO URINATE.
[2018-08-16] MEDS ORDERED: SODIUM POLYSTYRENE SULFONATE ORAL SUSP PO ONE (07:30)
[2018-08-16] MEDS ORDERED: FUROSEMIDE 20 MG/2 ML IV ONE (07:30)
[2018-08-16] MEDS ORDERED: FUROSEMIDE 20 MG/2 ML ONE (07:31)
--- NOTE | 2018-08-16 07:35 | NUR ---
dr pierce spoke with dr simpson
--- NOTE | 2018-08-16 07:43 | NUR ---
REDQUESTED MEDICATION FROM PHARMACY AND BLOOD FROM BLOOD BANK.
--- NOTE | 2018-08-16 07:50 | NUR ---
PT IS TAKINGS SIPS OF HER SPS. EDUCATED PT ON THE IMPORTANCE OF THE MEDICATION. PT UNDERSTANDS.
--- NOTE | 2018-08-16 08:01 | NUR ---
STAND BY ASSIST PT TO BEDSIDE COMMODE. PLANNER CHIEF AT BEDSIDE.
[2018-08-16 08:13] VITALS: BP 140/48
--- NOTE | 2018-08-16 08:15 | NUR ---
Blood infusing, consent signed and on chart, 2RNs at bedside to verify. Pt on cont cardiac and pulse ox monitoring. Denies questions/concerns prior to transfusion
--- NOTE | 2018-08-16 08:23 | NUR ---
REPORT GIVEN TO ALBINO EID.
[2018-08-16] MEDS ORDERED: ACETAMINOPHEN 325 MG TABLET PO PRN (08:30)
[2018-08-16] MEDS ORDERED: ONDANSETRON 2MG/ML, 2ML IVPush PRN (08:30)
[2018-08-16] MEDS ORDERED: DEXTROSE 50%, 50ML SYRINGE IVPush ONE (08:30)
[2018-08-16] MEDS ORDERED: ONDANSETRON ODT 4 MG PO PRN (08:30)
[2018-08-16] MEDS ORDERED: FUROSEMIDE 40 MG/4 ML IV SCH (08:30)
[2018-08-16] MEDS ORDERED: SODIUM BICARB 8.4%, 50ML SYRINGE IVPush ONE (08:30)
--- NOTE | 2018-08-16 08:42 | NUR ---
standby assist pt to bedside commode.
[2018-08-16] MEDS ORDERED: AMLODIPINE 10 MG TAB PO SCH (09:00)
[2018-08-16] MEDS ORDERED: PANTOPRAZOLE 40 MG IV IVPush SCH (09:00)
[2018-08-16] MEDS ORDERED: CALCIUM GLUCONATE 4.6 MEQ/10 ML IVPush ONE (09:00)
[2018-08-16] MEDS ORDERED: INSULIN REGULAR 100 UNITS/ML, 3ML VIAL IVPush ONE ×2 (09:00→11:00)
[2018-08-16 09:36] VITALS: BP 134/68
[2018-08-16 10:33] VITALS: BP 124/60
[2018-08-16 11:33] LABS: CULTURE INDICATED? YES; MICROSCOPIC AUTO
[2018-08-16 11:54] LABS: OCCULT BLOOD POSITIVE (NEGATIVE)
[2018-08-16 12:00] LABS: CREATININE,URINE RANDOM 30.1 mg/dL
[2018-08-16] MEDS: RIVAROXABAN 20 MG TABLET PO SCH (12:10)
[2018-08-16] MEDS: BUPROPION 100 MG TABLET PO SCH ×2 (12:10→20:58)
[2018-08-16] MEDS: METOPROLOL TARTRATE 50 MG TABLET PO SCH ×2 (12:10→20:57)
[2018-08-16] MEDS: BUSPIRONE 10 MG TABLET PO SCH ×2 (12:10→20:58)
[2018-08-16 13:15] LABS: ANION GAP 6 mmol/L (5-15); CALCIUM 9.2 mg/dL (8.5-10.1); CHLORIDE 112 mmol/L (98-107)
[2018-08-16 13:16] LABS: CREATININE 2.23 mg/dL (0.55-1.02)
[2018-08-16 13:18] LABS: TROPONIN I < 0.015 ng/mL (0.000-0.045)
[2018-08-16 14:49] VITALS: BP 136/72
[2018-08-16] MEDS: OXYcodone/APAP 5/325MG TABLET PO PRN (17:01)
[2018-08-16] MEDS: FUROSEMIDE 40 MG/4 ML IV SCH (17:02)
[2018-08-16 18:14] LABS: TROPONIN I < 0.015 ng/mL (0.000-0.045)
[2018-08-16 20:04] VITALS: BP 145/66
[2018-08-16] MEDS ORDERED: BUSPIRONE 5 MG TABLET ONE ×2 (20:53→20:54)
[2018-08-16] MEDS: ATORVASTATIN 20 MG TABLET PO SCH (20:57)
[2018-08-17 01:13] VITALS: BP 140/69
[2018-08-17] MEDS: OXYcodone/APAP 5/325MG TABLET PO PRN ×3 (04:32→22:34)
[2018-08-17 05:01] LABS: BASOPHILS # (AUTO) 0.05 x10^3/uL (0-0.1); BASOPHILS % (AUTO) 1 % (0-1); EOSINOPHILS # (AUTO) 0.26 x10^3/uL (0-0.4); EOSINOPHILS % (AUTO) 3 % (1-7); LYMPHOCYTES % (AUTO) 13 % (22-44); MD NO; MEAN CORPUSCULAR HEMOGLOBIN 25.2 pg (27.0-34.8); MEAN CORPUSCULAR HGB CONC 32.5 g/dL (32.4-35.8); MEAN CORPUSCULAR VOLUME 77.4 fL (80-100); MEAN PLATELET VOLUME 7.7 fL (7.4-10.4); MONOCYTES # (AUTO) 0.77 x10^3/uL (0.2-0.8); MONOCYTES % (AUTO) 9 % (2-9); NEUTROPHILS # (AUTO) 6.66 x10^3/uL (1.8-6.8); NEUTROPHILS % (AUTO) 75 % (42-75); PLATELET COUNT 317 x10^3/uL (130-400); RED CELL DISTRIBUTION WIDTH 18.1 % (9.6-15.2)
[2018-08-17 05:11] LABS: ALANINE AMINOTRANSFERASE 17 U/L (12-78); ALBUMIN 3.2 g/dL (3.4-5.0); ANION GAP 3 mmol/L (5-15); CALCIUM 9.1 mg/dL (8.5-10.1); CHLORIDE 109 mmol/L (98-107); CREATININE 2.13 mg/dL (0.55-1.02)
[2018-08-17 05:15] LABS: ALKALINE PHOSPHATASE 104 U/L (45-117); BILIRUBIN,TOTAL 0.3 mg/dL (0.2-1.0); CHOL/HDL RATIO 2.5; CHOLESTEROL, TOTAL 126 mg/dL (140-239); HDL CHOL % 40 % (28-40); HDL CHOLESTEROL (DIRECT) 50 mg/dL (40-60); LDL CHOLESTEROL,CALCULATED 47 mg/dL (54-169); LDL/HDL RATIO 0.9 (0.5-3.0); TOTAL PROTEIN 7.9 g/dL (6.4-8.2); TRIGLYCERIDES 147 mg/dL (50-200); VLDL CHOLESTEROL 29 mg/dL (0-25)
[2018-08-17] MEDS: PANTOPROZOLE 40MG TABLET PO SCH (06:02)
[2018-08-17 07:09] VITALS: BP 106/58
[2018-08-17] MEDS: RIVAROXABAN 20 MG TABLET PO SCH (08:32)
[2018-08-17] MEDS: FUROSEMIDE 40 MG/4 ML IV SCH (08:32)
[2018-08-17] MEDS: BUSPIRONE 10 MG TABLET PO SCH ×2 (08:32→20:20)
[2018-08-17] MEDS: BUPROPION 100 MG TABLET PO SCH ×2 (08:32→20:20)
[2018-08-17] MEDS: METOPROLOL TARTRATE 50 MG TABLET PO SCH ×2 (08:33→20:20)
[2018-08-17 12:24] VITALS: BP 137/65
[2018-08-17] MEDS: FUROSEMIDE 40 MG TABLET PO SCH (17:48)
[2018-08-17 19:57] VITALS: BP 132/66
[2018-08-17] MEDS: ATORVASTATIN 20 MG TABLET PO SCH (20:20)
[2018-08-17] MEDS: ALBUTEROL SULFATE 2.5 MG/3 ML NPPB PRN (22:51)
[2018-08-18 02:41] VITALS: BP 127/86
[2018-08-18 04:56] LABS: BASOPHILS # (AUTO) 0.05 x10^3/uL (0-0.1); BASOPHILS % (AUTO) 1 % (0-1); EOSINOPHILS # (AUTO) 0.36 x10^3/uL (0-0.4); EOSINOPHILS % (AUTO) 4 % (1-7); LYMPHOCYTES % (AUTO) 18 % (22-44); MD NO; MEAN CORPUSCULAR HEMOGLOBIN 25.3 pg (27.0-34.8); MEAN CORPUSCULAR HGB CONC 32.7 g/dL (32.4-35.8); MEAN CORPUSCULAR VOLUME 77.2 fL (80-100); MEAN PLATELET VOLUME 6.9 fL (7.4-10.4); MONOCYTES # (AUTO) 0.77 x10^3/uL (0.2-0.8); MONOCYTES % (AUTO) 9 % (2-9); NEUTROPHILS % (AUTO) 68 % (42-75); PLATELET COUNT 373 x10^3/uL (130-400); RED BLOOD COUNT 3.33 x10^6/uL (3.82-5.3); RED CELL DISTRIBUTION WIDTH 18.2 % (9.6-15.2)
[2018-08-18 05:11] LABS: ALBUMIN 3.4 g/dL (3.4-5.0); ANION GAP 6 mmol/L (5-15); CALCIUM 9.7 mg/dL (8.5-10.1); CHLORIDE 107 mmol/L (98-107)
[2018-08-18 05:14] LABS: ALANINE AMINOTRANSFERASE 17 U/L (12-78); ALKALINE PHOSPHATASE 106 U/L (45-117); BILIRUBIN,TOTAL 0.5 mg/dL (0.2-1.0); CREATININE 2.25 mg/dL (0.55-1.02)
[2018-08-18] MEDS: PANTOPROZOLE 40MG TABLET PO SCH (05:46)
[2018-08-18 07:09] VITALS: BP 149/70
[2018-08-18] MEDS: RIVAROXABAN 20 MG TABLET PO SCH (09:14)
[2018-08-18] MEDS: METOPROLOL TARTRATE 50 MG TABLET PO SCH (09:14)
[2018-08-18] MEDS: FUROSEMIDE 40 MG TABLET PO SCH (09:14)
[2018-08-18] MEDS: BUPROPION 100 MG TABLET PO SCH (09:14)
[2018-08-18] MEDS: BUSPIRONE 10 MG TABLET PO SCH (09:14)
[2018-08-18 12:12] VITALS: BP 147/70
[2018-08-18] MEDS ORDERED: FURO40TA6 PO (13:08)
[2018-08-18] MEDS ORDERED: ALBU2.5V NPPB (13:32)
[2018-08-18] MEDS: ALBUTEROL SULFATE 2.5 MG/3 ML NPPB PRN (15:30)
[2018-08-18 16:22] LABS: ANA SCREEN NEGATIVE (Negative)
== END 2018-08-18 17:45 | disposition home or self-care (01) | DRG 682 ==
LOC: ED 07:31 → 5SO 08:28
PROVIDERS: ADMIT Hospitalist; ATTEND Hospitalist
PROC: 30233N1 Transfusion of Nonautologous Red Blood Cells into Peripheral Vein, Percutaneous Approach (ICD-10-PCS; principal; 2018-08-16)
DX: N17.0 Acute kidney failure with tubular necrosis (principal); I50.33 Acute on chronic diastolic (congestive) heart failure; D68.69 Other thrombophilia; Z68.41 Body mass index [BMI] 40.0-44.9, adult; I13.0 Hypertensive heart and chronic kidney disease with heart failure and stage 1 through stage 4 chronic kidney disease, or unspecified chronic kidney disease; J96.10 Chronic respiratory failure, unspecified whether with hypoxia or hypercapnia; J98.11 Atelectasis; D64.9 Anemia, unspecified; E11.22 Type 2 diabetes mellitus with diabetic chronic kidney disease; E66.9 Obesity, unspecified; E78.5 Hyperlipidemia, unspecified; E87.5 Hyperkalemia; G89.29 Other chronic pain; I25.10 Atherosclerotic heart disease of native coronary artery without angina pectoris; I48.91 Unspecified atrial fibrillation; J44.9 Chronic obstructive pulmonary disease, unspecified; N18.9 Chronic kidney disease, unspecified; I08.1 Rheumatic disorders of both mitral and tricuspid valves; N20.0 Calculus of kidney; Z79.01 Long term (current) use of anticoagulants; Z79.84 Long term (current) use of oral hypoglycemic drugs; Z82.49 Family history of ischemic heart disease and other diseases of the circulatory system; I25.2 Old myocardial infarction; Z87.891 Personal history of nicotine dependence; Z87.442 Personal history of urinary calculi; Z95.0 Presence of cardiac pacemaker; Z95.3 Presence of xenogenic heart valve; Z99.81 Dependence on supplemental oxygen; Z90.49 Acquired absence of other specified parts of digestive tract; Z91.013 Allergy to seafood
CPT/HCPCS: 36415; 36430; 71045; 76770; 80048; 80053; 80061; 81001; 82272; 82436; 82570; 83520; 83690; 83735; 83880; 84100; 84133; 84145; 84155; 84156; 84165; 84166; 84300; 84443; 84484; 85025; 85610; 85730; 86038; 86160; 86162; 86256; 86704; 86706; 86708; 86803; 86850; 86900; 86923; 87086; 87340; 93005; 93306; 94640; 96374; G0378; J1815; J1940; J7613; C9113; J0610; P9016

== ENCOUNTER 2018-11-15 13:40 | Emergency (ER) | payer MEDICARE ==
[~2018-11-15] VITALS: Ht 170.2 cm; Wt 123.0 kg
[~2018-11-15 13:40] MED LIST changes: +ALBU2.5V NPPB; +FURO40TA6 PO; +LISI-170 PO; +RIVA20TA PO
--- NOTE | 2018-11-15 13:55 | NUR ---
PT BIB [facility] OR LEFT FOOT PAIN AND SWELLING SINCE FRIDAY. PT STATES PAIN AND SWELLING STARTED FRIDAY IN TOES AND HAS ASCENDED TO ANKLE SINCE THEN. PT IS UNABLE TO BEAR WEIGHT ON LEFT FOOT AT THIS TIME. DENIES HX OF GOUT. PT STATES 2 WEEKS AGO, RIGHT TOES WERE PAINFUL AND SHE WAS SEEN IN UC. PER PT, XR RULED OUT FRACTURE AND SHE WAS DC'D HOME AT THAT TIME. PT STATES THIS PAIN FEELS THE SAME. PT CONNECTED TO MONITOR. HTN, 179/64, TACHY 90s-100s, 97% ON 4L NC, LOW GRADE TEMP 99.5. EDMD ASSESSMENT COMPELTE. AWAITING FURTHER ORDERS.
[2018-11-15] MEDS ORDERED: OXYcodone/APAP 5/325MG TABLET PO ONE (14:00)
[2018-11-15] MEDS ORDERED: OXYcodone/APAP 5/325MG TABLET ONE (14:02)
[2018-11-15] MEDS ORDERED: FOLI-17 PO (14:10)
[2018-11-15] MEDS ORDERED: FERR324T5 PO (14:10)
--- NOTE | 2018-11-15 14:10 | NUR ---
REPORT FROM JOELLEN EID
[2018-11-15 14:28] LABS: ALANINE AMINOTRANSFERASE 21 U/L (12-78); ALBUMIN 3.3 g/dL (3.4-5.0); ANION GAP 6 mmol/L (5-15); CALCIUM 9.2 mg/dL (8.5-10.1); CHLORIDE 107 mmol/L (98-107); CREATININE 1.26 mg/dL (0.55-1.02)
[2018-11-15 14:30] LABS: ALKALINE PHOSPHATASE 102 U/L (45-117); BASOPHILS # (AUTO) 0.03 x10^3/uL (0-0.1); BASOPHILS % (AUTO) 0 % (0-1); BILIRUBIN,TOTAL 0.5 mg/dL (0.2-1.0); EOSINOPHILS # (AUTO) 0.13 x10^3/uL (0-0.4); EOSINOPHILS % (AUTO) 1 % (1-7); LYMPHOCYTES # (AUTO) 0.76 x10^3/uL (1-3.4); LYMPHOCYTES % (AUTO) 7 % (22-44); MD NO; MEAN CORPUSCULAR HEMOGLOBIN 25.3 pg (27.0-34.8); MEAN CORPUSCULAR HGB CONC 30.8 g/dL (32.4-35.8); MEAN CORPUSCULAR VOLUME 82.1 fL (80-100); MEAN PLATELET VOLUME 7.5 fL (7.4-10.4); MONOCYTES # (AUTO) 0.95 x10^3/uL (0.2-0.8); MONOCYTES % (AUTO) 8 % (2-9); NEUTROPHILS # (AUTO) 9.53 x10^3/uL (1.8-6.8); NEUTROPHILS % (AUTO) 84 % (42-75); PLATELET COUNT 324 x10^3/uL (130-400); RED BLOOD COUNT 3.69 x10^6/uL (3.82-5.3); RED CELL DISTRIBUTION WIDTH 17.8 % (9.6-15.2); TOTAL PROTEIN 7.8 g/dL (6.4-8.2)
--- NOTE | 2018-11-15 15:27 | NUR ---
MD IN WITH PATIENT TO UPDATE ON PLAN OF CARE
[2018-11-15 15:36] LABS: HCT (SEDRATE) 26.5 % (34.6-47.8)
--- NOTE | 2018-11-15 16:00 | NUR ---
CÉSAR, DAUGHTER CALLED FOR PATIENT. [phone]. DAUGHTER WILL COME BRONZE CHASER PATIENT AND BRING PORTABLE O2
[2018-11-15 16:02] VITALS: BP 156/71
--- NOTE | 2018-11-15 16:45 | NUR ---
CASANDRA WRAP APPLIED TO LEFT FOOT. IRMAN NEEDED ASSISTANCE WITH TRANSFER TO FROM BED.
== END 2018-11-15 16:46 | disposition home or self-care (01) ==
LOC: ED 16:45
DX: N28.9 Disorder of kidney and ureter, unspecified (principal); M10.372 Gout due to renal impairment, left ankle and foot; E11.9 Type 2 diabetes mellitus without complications; I25.2 Old myocardial infarction; J44.9 Chronic obstructive pulmonary disease, unspecified; E78.5 Hyperlipidemia, unspecified; I11.0 Hypertensive heart disease with heart failure; I50.9 Heart failure, unspecified; Z95.0 Presence of cardiac pacemaker; Z90.49 Acquired absence of other specified parts of digestive tract; Z87.891 Personal history of nicotine dependence
CPT/HCPCS: 36415; 80053; 84550; 85025; 85651; 99284

== ENCOUNTER → 2018-11-26 | Outpatient (CLI) | payer MEDICARE ==
[~2018-11-26] MED LIST changes: +FOLI-17 PO
== END | disposition home or self-care (01) ==
LOC: CFH 10:25
PROVIDERS: ATTEND Registered Nurse
DX: J84.10 Pulmonary fibrosis, unspecified (principal); I50.33 Acute on chronic diastolic (congestive) heart failure
CPT/HCPCS: 71250

== ENCOUNTER 2019-01-09 20:48 | Emergency (ER) | payer MEDICARE ==
[~2019-01-09] VITALS: Ht 170.2 cm; Wt 122.0 kg
[2019-01-09 23:13] VITALS: BP 174/86
== END 2019-01-09 23:16 | disposition home or self-care (01) ==
LOC: ED 21:18
DX: R10.13 Epigastric pain (principal); R11.0 Nausea; I10 Essential (primary) hypertension; E11.9 Type 2 diabetes mellitus without complications; Z95.0 Presence of cardiac pacemaker
CPT/HCPCS: 36415; 74022; 80053; 83690; 84484; 85025; 93005; 96374; 96375; 99284; J2270; J2405

== ENCOUNTER 2019-04-28 11:21 | Inpatient (IN) | payer MEDICARE ==
[~2019-04-28] VITALS: Ht 170.2 cm; Wt 130.0 kg
[~2019-04-28 11:21] MED LIST changes: -ALPR-475 PO; +ALPR0.5T7 PO; -BISA10SU2 PR; +BISA10SU4 PR; -HYDR-3307 PO; +HYDR-36 PO; +OMEP40CA42 PO; -OMEP40CA6 PO; +SUCR1ORA5 PO
[2019-04-28] MEDS ORDERED: DILTIAZEM 5 MG/ML, 5ML ONE (12:09)
[2019-04-28] MEDS ORDERED: DILTIAZEM 5 MG/ML, 5ML IV ONE (12:30)
[2019-04-28 12:31] LABS: BASOPHILS # (AUTO) 0.04 x10^3/uL (0-0.1); BASOPHILS % (AUTO) 0 % (0-1); EOSINOPHILS # (AUTO) 0.17 x10^3/uL (0-0.4); EOSINOPHILS % (AUTO) 2 % (1-7); LYMPHOCYTES # (AUTO) 0.71 x10^3/uL (1-3.4); LYMPHOCYTES % (AUTO) 7 % (22-44); MD NO; MEAN CORPUSCULAR HEMOGLOBIN 26.3 pg (27.0-34.8); MEAN CORPUSCULAR VOLUME 84.8 fL (80-100); MEAN PLATELET VOLUME 7.3 fL (7.4-10.4); MONOCYTES # (AUTO) 0.87 x10^3/uL (0.2-0.8); MONOCYTES % (AUTO) 9 % (2-9); NEUTROPHILS # (AUTO) 7.98 x10^3/uL (1.8-6.8); NEUTROPHILS % (AUTO) 82 % (42-75); PLATELET COUNT 383 x10^3/uL (130-400); RED BLOOD COUNT 2.85 x10^6/uL (3.82-5.3); RED CELL DISTRIBUTION WIDTH 19.8 % (9.6-15.2)
[2019-04-28 12:38] LABS: INTERNATIONAL NORMALIZED RATIO 1.29 (0.93-1.1); PROTHROMBIN TIME 13.4 Seconds (9.6-11.5)
[2019-04-28 12:40] LABS: ALANINE AMINOTRANSFERASE 22 U/L (12-78); ALBUMIN 2.9 g/dL (3.4-5.0); ANION GAP 6 mmol/L (5-15); CALCIUM 8.9 mg/dL (8.5-10.1); CHLORIDE 108 mmol/L (98-107); CREATININE 1.38 mg/dL (0.55-1.02)
[2019-04-28 12:44] LABS: ALKALINE PHOSPHATASE 85 U/L (45-117); BILIRUBIN,TOTAL 0.4 mg/dL (0.2-1.0); TOTAL PROTEIN 7.2 g/dL (6.4-8.2); TROPONIN I < 0.015 ng/mL (0.000-0.045)
--- NOTE | 2019-04-28 12:52 | NUR ---
PT BIB SON TODAY FOR AN ERRATIC PULSE OF 80-160. PT HAS HISTORY OF AFIB AND PACER. LOC PLACED, LABS DRAWN AND SENT. AWAITING CARDIZEM DRIP AT THIS TIME. PT RESTING IN BED, DENIES ANY CURRENT NEEDS OR CONCERNS, CALL LIGHT IN REACH.
[2019-04-28] MEDS: DILTIAZEM 125 MG in SODIUM CHLORIDE 0.9% 100 ML IV SCH ×2 (13:27→16:42)
--- NOTE | 2019-04-28 13:51 | NUR ---
PT RESTING IN BED, CARDIZEM DRIP RUNNING WITHOUT ISSUE. PT UP TO RESTROOM X 1, STAND BY ASSIST ONLY. PT DENIES ANY NEEDS OR CONCERNS AT THIS TIME. CALL LIGHT IN REACH.
[2019-04-28] MEDS ORDERED: BUSPIRONE 10 MG TABLET PO PRN (14:00)
[2019-04-28] MEDS ORDERED: OXYcodone/APAP 5/325MG TABLET PO PRN (14:00)
[2019-04-28] MEDS ORDERED: DEXTROSE 4 GM TAB.CHEW PO PRN (14:00)
[2019-04-28] MEDS ORDERED: GLUCAGON 1 MG IM PRN (14:00)
[2019-04-28] MEDS ORDERED: BACLOFEN 10 MG TABLET PO PRN (14:00)
[2019-04-28] MEDS ORDERED: ALBUTEROL SULFATE 2.5 MG/3 ML NPPB PRN (14:00)
[2019-04-28] MEDS ORDERED: morphine SULFATE 10 MG/ML, 1ML IVPush PRN (14:00)
[2019-04-28] MEDS ORDERED: IRON DEXTRAN COMPLEX 0 MG in SODIUM CHLORIDE 0.9% 250 ML IV ONE (14:00)
[2019-04-28] MEDS ORDERED: DEXTROSE 50%, 50ML SYRINGE IVPush PRN (14:00)
[2019-04-28 14:12] LABS: ABSOLUTE RETICS # 0.109 x10^6/uL (0.5-2.5); RED BLOOD COUNT 2.86 x10^6/uL (3.82-5.3); RETICULOCYTE COUNT % 3.79 % (0.5-1.5)
--- NOTE | 2019-04-28 14:18 | NUR ---
pt provided with a pillow. updated on plan of care. verbalizes understanding, denies any needs or concerns at this time. call light in reach.
--- NOTE | 2019-04-28 14:42 | NUR ---
REPORT CALLED TO RECEIVING RN. PT UPDATED ON PLAN OF CARE. DENIES ANY FURTHER NEEDS OR CONCERNS AT THIS TIME. CALL LIGHT IN REACH. AWAITING TRANSPORT AT THIS TIME.
[2019-04-28] MEDS ORDERED: PANTOPROZOLE 40MG TABLET PO SCH (16:00)
[2019-04-28] MEDS ORDERED: EPINEPHRINE 1 MG/ML, 1ML SQ PRN (16:00)
[2019-04-28] MEDS ORDERED: IRON DEXTRAN COMPLEX 25 MG in SODIUM CHLORIDE 0.9% 50 ML IV ONE (16:00)
[2019-04-28 16:34] VITALS: BP 148/76
[2019-04-28] MEDS: FUROSEMIDE 40 MG/4 ML IV SCH (16:43)
[2019-04-28] MEDS ORDERED: SODIUM CHLORIDE 0.9% IV ONE (17:00)
[2019-04-28] MEDS ORDERED: METOPROLOL SUCCINATE 100 MG TAB.ER.24H PO SCH (17:00)
[2019-04-28] MEDS ORDERED: IRON DEXTRAN COMPLEX IV ONE (17:00)
[2019-04-28] MEDS: METOPROLOL SUCCINATE 100 MG TAB.ER.24H PO SCH (17:00)
[2019-04-28] MEDS ORDERED: RIVA20TA PO (18:43)
[2019-04-28] MEDS ORDERED: SERT50TA PO (18:45)
[2019-04-28] MEDS ORDERED: FEBU40TA PO (18:45)
[2019-04-28] MEDS ORDERED: COLC0.6T37 PO (18:45)
[2019-04-28] MEDS ORDERED: DILTIAZEM 125 MG in SODIUM CHLORIDE 0.9% 100 ML IV SCH (19:10)
[2019-04-28 19:13] VITALS: BP 128/66
[2019-04-28 20:12] LABS: OCCULT BLOOD POSITIVE (NEGATIVE)
[2019-04-28] MEDS: SULFAMETH./TRIMETHOPRIM DS 800MG/160MG TABLET HOMEMEDPO SCH (21:00)
[2019-04-28] MEDS: ATORVASTATIN 20 MG TABLET PO SCH (22:18)
[2019-04-28] MEDS: BUPROPION SR 100 MG TABLET PO SCH (22:18)
[2019-04-28] MEDS: PANTOPRAZOLE 40 MG IV IVPush SCH (22:19)
[2019-04-28] MEDS: SODIUM CHLORIDE FLUSH 10ML SYR IVF SCH (22:19)
[2019-04-28 23:50] VITALS: BP 148/72
[2019-04-29] VITALS (12 sets, daily range): BP systolic 117–133; BP diastolic 66–85
[2019-04-29] MEDS: ACETAMINOPHEN 325 MG TABLET PO PRN ×2 (03:51→23:01)
[2019-04-29 04:29] LABS: BASOPHILS # (AUTO) 0.05 x10^3/uL (0-0.1); BASOPHILS % (AUTO) 1 % (0-1); EOSINOPHILS # (AUTO) 0.22 x10^3/uL (0-0.4); EOSINOPHILS % (AUTO) 3 % (1-7); LYMPHOCYTES # (AUTO) 1.17 x10^3/uL (1-3.4); LYMPHOCYTES % (AUTO) 14 % (22-44); MD NO; MEAN CORPUSCULAR HEMOGLOBIN 27.3 pg (27.0-34.8); MEAN CORPUSCULAR HGB CONC 31.8 g/dL (32.4-35.8); MEAN CORPUSCULAR VOLUME 85.9 fL (80-100); MEAN PLATELET VOLUME 7.1 fL (7.4-10.4); MONOCYTES # (AUTO) 0.84 x10^3/uL (0.2-0.8); MONOCYTES % (AUTO) 10 % (2-9); NEUTROPHILS # (AUTO) 6.08 x10^3/uL (1.8-6.8); NEUTROPHILS % (AUTO) 73 % (42-75); PLATELET COUNT 363 x10^3/uL (130-400); RED BLOOD COUNT 2.74 x10^6/uL (3.82-5.3); RED CELL DISTRIBUTION WIDTH 19.7 % (9.6-15.2)
[2019-04-29 04:36] LABS: ANION GAP 5 mmol/L (5-15); CALCIUM 8.4 mg/dL (8.5-10.1); CHLORIDE 109 mmol/L (98-107)
[2019-04-29] MEDS: METOPROLOL SUCCINATE 100 MG TAB.ER.24H PO SCH ×3 (07:00→20:32)
[2019-04-29] MEDS: FUROSEMIDE 40 MG/4 ML IV SCH (09:29)
[2019-04-29] MEDS: SULFAMETH./TRIMETHOPRIM DS 800MG/160MG TABLET HOMEMEDPO SCH ×2 (09:29→20:31)
[2019-04-29] MEDS: SODIUM CHLORIDE FLUSH 10ML SYR IVF SCH ×2 (09:30→20:32)
[2019-04-29] MEDS: FOLIC ACID 1 MG TABLET PO SCH (09:30)
[2019-04-29] MEDS: SERTRALINE 50MG TABLET PO SCH (09:30)
[2019-04-29] MEDS: BUPROPION SR 100 MG TABLET PO SCH ×2 (09:30→20:32)
[2019-04-29] MEDS: PANTOPRAZOLE 40 MG IV IVPush SCH (09:30)
[2019-04-29] MEDS ORDERED: POTASSIUM CHLORIDE 20 MEQ TAB.ER.PRT ONE (09:47)
[2019-04-29] MEDS: POTASSIUM CHLORIDE 20 MEQ TAB.ER.PRT PO SCH (10:34)
[2019-04-29] MEDS ORDERED: CALCIUM CARBONATE 500 MG TAB.CHEW ONE (13:49)
[2019-04-29] MEDS ORDERED: CALCIUM CARBONATE 500 MG TAB.CHEW PO PRN (14:00)
[2019-04-29] MEDS: PANTOPROZOLE 40MG TABLET PO SCH (16:30)
[2019-04-29] MEDS: ATORVASTATIN 20 MG TABLET PO SCH (20:32)
[2019-04-30 02:36] VITALS: BP 133/76
[2019-04-30 05:34] LABS: BASOPHILS # (AUTO) 0.04 x10^3/uL (0-0.1); BASOPHILS % (AUTO) 1 % (0-1); EOSINOPHILS % (AUTO) 2 % (1-7); LYMPHOCYTES # (AUTO) 1.17 x10^3/uL (1-3.4); LYMPHOCYTES % (AUTO) 13 % (22-44); MD NO; MEAN CORPUSCULAR HGB CONC 31.2 g/dL (32.4-35.8); MEAN CORPUSCULAR VOLUME 86.4 fL (80-100); MEAN PLATELET VOLUME 7.2 fL (7.4-10.4); MONOCYTES # (AUTO) 1.04 x10^3/uL (0.2-0.8); MONOCYTES % (AUTO) 11 % (2-9); NEUTROPHILS # (AUTO) 6.71 x10^3/uL (1.8-6.8); NEUTROPHILS % (AUTO) 73 % (42-75); PLATELET COUNT 348 x10^3/uL (130-400); RED BLOOD COUNT 2.69 x10^6/uL (3.82-5.3); RED CELL DISTRIBUTION WIDTH 19.9 % (9.6-15.2)
[2019-04-30 05:40] LABS: ANION GAP 6 mmol/L (5-15); CALCIUM 8.8 mg/dL (8.5-10.1); CHLORIDE 108 mmol/L (98-107)
[2019-04-30 05:41] LABS: CREATININE 1.75 mg/dL (0.55-1.02)
[2019-04-30] MEDS: PANTOPROZOLE 40MG TABLET PO SCH ×2 (05:47→18:35)
[2019-04-30 07:33] VITALS: BP 113/60
[2019-04-30] MEDS: POTASSIUM CHLORIDE 20 MEQ TAB.ER.PRT PO SCH (09:30)
[2019-04-30] MEDS: FUROSEMIDE 40 MG/4 ML IV SCH (09:30)
[2019-04-30] MEDS: SODIUM CHLORIDE FLUSH 10ML SYR IVF SCH (09:31)
[2019-04-30] MEDS: SULFAMETH./TRIMETHOPRIM DS 800MG/160MG TABLET HOMEMEDPO SCH (09:31)
[2019-04-30] MEDS: BUPROPION SR 100 MG TABLET PO SCH (09:31)
[2019-04-30] MEDS: FOLIC ACID 1 MG TABLET PO SCH (09:31)
[2019-04-30] MEDS: SERTRALINE 50MG TABLET PO SCH (09:31)
[2019-04-30] MEDS: METOPROLOL SUCCINATE 100 MG TAB.ER.24H PO SCH (09:31)
[2019-04-30 14:16] VITALS: BP 112/65
[2019-04-30] MEDS ORDERED: METO-95 PO (17:47)
== END 2019-04-30 19:30 | disposition home health service (06) | DRG 377 ==
LOC: ED 12:40 → EDIP 13:50 → 5SO 15:03
PROVIDERS: ADMIT Hospitalist; ATTEND Family Medicine
PROC: 30233N1 Transfusion of Nonautologous Red Blood Cells into Peripheral Vein, Percutaneous Approach (ICD-10-PCS; principal; 2019-04-28)
DX: K92.2 Gastrointestinal hemorrhage, unspecified (principal); I50.33 Acute on chronic diastolic (congestive) heart failure; D68.69 Other thrombophilia; I13.0 Hypertensive heart and chronic kidney disease with heart failure and stage 1 through stage 4 chronic kidney disease, or unspecified chronic kidney disease; F11.20 Opioid dependence, uncomplicated; J96.11 Chronic respiratory failure with hypoxia; D62 Acute posthemorrhagic anemia; Z68.41 Body mass index [BMI] 40.0-44.9, adult; I48.91 Unspecified atrial fibrillation; D50.9 Iron deficiency anemia, unspecified; E11.22 Type 2 diabetes mellitus with diabetic chronic kidney disease; E83.42 Hypomagnesemia; F32.9 Major depressive disorder, single episode, unspecified; G47.33 Obstructive sleep apnea (adult) (pediatric); I25.10 Atherosclerotic heart disease of native coronary artery without angina pectoris; I25.2 Old myocardial infarction; J44.9 Chronic obstructive pulmonary disease, unspecified; K21.9 Gastro-esophageal reflux disease without esophagitis; N18.3 Chronic kidney disease, stage 3 (moderate); M81.0 Age-related osteoporosis without current pathological fracture; G89.29 Other chronic pain; E66.9 Obesity, unspecified; M1A.9XX0 Chronic gout, unspecified, without tophus (tophi); Z99.81 Dependence on supplemental oxygen; Z95.2 Presence of prosthetic heart valve; Z95.0 Presence of cardiac pacemaker; Z87.891 Personal history of nicotine dependence; Z82.49 Family history of ischemic heart disease and other diseases of the circulatory system; Z79.01 Long term (current) use of anticoagulants
CPT/HCPCS: 36415; 36430; 71045; 80048; 80053; 82272; 82607; 82728; 82962; 83540; 83550; 83735; 83880; 84443; 84484; 85014; 85018; 85025; 85045; 85610; 86850; 86900; 86923; 93005; 93970; 94640; 96374; 99285; G0378; J1750; J1940; J7613; C9113; J7050; P9016

== ENCOUNTER 2019-05-27 18:24 | Inpatient (IN) | payer MEDICARE ==
[~2019-05-27] VITALS: Ht 170.2 cm; Wt 138.0 kg
[~2019-05-27 18:24] MED LIST changes: +COLC0.6T37 PO; +FEBU40TA PO; +METO-95 PO; +SERT50TA PO
[2019-05-27] MEDS ORDERED: ASPIRIN 81 MG TABLET CHEW PO ONE (20:00)
--- NOTE | 2019-05-27 20:00 | NUR ---
PT AMBULATED TO ROOM WITH FAMILY. MONITOR PLACED.
[2019-05-27 20:20] LABS: MEAN CORPUSCULAR HEMOGLOBIN 29.6 pg (27.0-34.8); MEAN CORPUSCULAR HGB CONC 30.8 g/dL (32.4-35.8); MEAN CORPUSCULAR VOLUME 96.3 fL (80-100); MEAN PLATELET VOLUME 7.3 fL (7.4-10.4); PLATELET COUNT 306 x10^3/uL (130-400); RED BLOOD COUNT 1.91 x10^6/uL (3.82-5.3); RED CELL DISTRIBUTION WIDTH 24.6 % (9.6-15.2)
[2019-05-27 20:23] LABS: ALANINE AMINOTRANSFERASE 18 U/L (12-78); ALBUMIN 2.9 g/dL (3.4-5.0); ANION GAP 8 mmol/L (5-15); CALCIUM 8.2 mg/dL (8.5-10.1); CHLORIDE 105 mmol/L (98-107); CREATININE 1.69 mg/dL (0.55-1.02)
[2019-05-27 20:28] LABS: ALKALINE PHOSPHATASE 79 U/L (45-117); BASOPHILS # (AUTO) 0.07 x10^3/uL (0-0.1); BASOPHILS % (AUTO) 1 % (0-1); BILIRUBIN,TOTAL 0.5 mg/dL (0.2-1.0); EOSINOPHILS # (AUTO) 0.09 x10^3/uL (0-0.4); EOSINOPHILS % (AUTO) 1 % (1-7); LYMPHOCYTES # (AUTO) 0.76 x10^3/uL (1-3.4); LYMPHOCYTES % (AUTO) 7 % (22-44); MD MORPH REVIEW ONLY; MONOCYTES # (AUTO) 0.85 x10^3/uL (0.2-0.8); MONOCYTES % (AUTO) 8 % (2-9); NEUTROPHILS # (AUTO) 9.34 x10^3/uL (1.8-6.8); NEUTROPHILS % (AUTO) 84 % (42-75); TOTAL PROTEIN 7.1 g/dL (6.4-8.2); TROPONIN I < 0.015 ng/mL (0.000-0.045)
[2019-05-27 20:29] LABS: ANISOCYTOSIS 2+; POLYCHROMASIA 2+
[2019-05-27 20:30] LABS: <PLATELET ESTIMATE> ADEQUATE; <PLT MORPHOLOGY> NORMAL PLT MORPH; OVALOCYTES 1+; TEAR DROPS 1+
--- NOTE | 2019-05-27 20:30 | NUR ---
LAB CALLED CRITICAL H 5.7 H18.4. PHYSICIAN NOTIFIED.
[2019-05-27] MEDS ORDERED: ASPIRIN 81 MG TABLET CHEW ONE (20:36)
[2019-05-28 00:11] VITALS: BP 123/38
--- NOTE | 2019-05-28 00:17 | NUR ---
TRANFUSION STARTED. WILL REMAIN WITH PT FOR 15 MINUTES.
--- NOTE | 2019-05-28 00:35 | NUR ---
PT SHOW'S NO S/S OF REACTION. PROTOCOL FOLLOWED.
[2019-05-28] MEDS ORDERED: ONDANSETRON 2MG/ML, 2ML IVPush ONE (01:00)
[2019-05-28] MEDS ORDERED: ONDANSETRON 2MG/ML, 2ML ONE ×2 (01:21→01:27)
--- NOTE | 2019-05-28 01:30 | NUR ---
PT RESTING COMFORTABLY. TRANSFUSION STILL IN PROGRESS.
--- NOTE | 2019-05-28 02:15 | NUR ---
TRANSFUSION COMPLETE. NO S/S OF REACTION. WILL MONITOR.
[2019-05-28] MEDS ORDERED: DOCUSATE 100 MG CAPSULE PO PRN (03:00)
[2019-05-28] MEDS ORDERED: TEMAZEPAM 15 MG CAPSULE PO PRN (03:00)
[2019-05-28] MEDS ORDERED: hydrALAzine 20 MG/ML, 1ML IVPush PRN (03:00)
[2019-05-28] MEDS ORDERED: LIDODERM 5% PATCH TD PRN (03:00)
[2019-05-28] MEDS ORDERED: ONDANSETRON ODT 4 MG PO PRN (03:00)
[2019-05-28] MEDS ORDERED: ACETAMINOPHEN 325 MG TABLET PO PRN (03:00)
--- NOTE | 2019-05-28 03:37 | NUR ---
provider notified of new critical lab results h&h of 6.5 and 20.4 per Sole at lab
[2019-05-28 03:40] LABS: TROPONIN I < 0.015 ng/mL (0.000-0.045)
[2019-05-28] MEDS ORDERED: FUROSEMIDE 40 MG/4 ML ONE (08:10)
[2019-05-28] MEDS ORDERED: HEPARIN 5,000 UNITS/ML, 1ML ONE (08:10)
[2019-05-28] MEDS: HEPARIN 5,000 UNITS/ML, 1ML SQ SCH ×2 (08:16→17:04)
[2019-05-28] MEDS: FUROSEMIDE 40 MG/4 ML IV SCH ×2 (08:16→17:04)
[2019-05-28] MEDS ORDERED: FERR-51 PO (08:31)
[2019-05-28] MEDS ORDERED: RIVA20TA PO (08:31)
[2019-05-28 09:18] LABS: TROPONIN I < 0.015 ng/mL (0.000-0.045)
--- NOTE | 2019-05-28 09:46 | NUR ---
REPORT RECEIVED FROM RAGINI RAMIREZ. PT IS A&OX4, RESPS EVEN AND UNLABORED. PT DENIES PAIN. HOSPITALIST MIKIE NOTIFIED PT'S HBG IS 6.5 OF 3AM S/P 1 U PRBC INFUSED YESTERDAY. INSTRUCTED RN TO TRANSFUSE SECOND UNIT OF PRBCS.
--- NOTE | 2019-05-28 09:48 | NUR ---
PHARMACY PAGED TO VERIFY AND SEND AM MEDS.
[2019-05-28 10:11] VITALS: BP 146/62
--- NOTE | 2019-05-28 10:13 | NUR ---
UNIT PRBC'S INITIATED BY THIS RN, VERIFIED BY RAGINI RAMIREZ. SEE PAPER CHARTING FOR BLOOD TRANSFUSION ADMINISTRATION DOCUMENTATION.
--- NOTE | 2019-05-28 10:21 | NUR ---
HOSPITALIST MD JACKSON AT BEDSIDE. PRBC'S INFUSING, RN AT BEDSIDE FOR CONTINUOUS MONITORING DURING PRBC INFUSION PER POLICY.
--- NOTE | 2019-05-28 10:27 | NUR ---
PT IS HAVING OCC RUNS OF PVCS 3-6 PER RUN, PT NOTES PALPITATIONS WITH THIS. EKG WAS TAKEN BY EDT, REVIEWED BY . HOSPITALIST MANUEL NOTIFIED. INSTRUCTED RN TO ADMIN SCHEDULED METOPROLOL. CURRENT VS REVIEWED WITH HOSPITALIST. PT IS A&O, RESPS EVEN AND UNLABORED. AFIB RATE 90'S ON HOME CARE SPECIALIST. LUNG SOUNDS CLEAR. PT TOLERATING BLOOD TRANSFUSION WELL WITH NO S/SX TRANSFUSION RXN.
--- NOTE | 2019-05-28 10:37 | NUR ---
METOPROLOL STILL NOT ARRIVED FROM PHARMACY, MED RE-REQUESTED FROM PHARMACY.
[2019-05-28] MEDS ORDERED: SERTRALINE 50MG TABLET ONE (10:43)
[2019-05-28] MEDS ORDERED: PANTOPRAZOLE 20MG TABLET ONE (10:43)
[2019-05-28] MEDS: METOPROLOL SUCCINATE 100 MG TAB.ER.24H PO SCH ×2 (10:46→20:29)
[2019-05-28] MEDS: PANTOPROZOLE 40MG TABLET PO SCH ×2 (10:46→20:29)
[2019-05-28] MEDS: SERTRALINE 50MG TABLET PO SCH (10:47)
--- NOTE | 2019-05-28 11:19 | NUR ---
PT A&O, RESPS EVEN AND UNLABORED. PT HAS NOT HAD A BM TODAY. PT CONSUMED BREAKFAST 100%, TOLERATED WELL. PT IS AFIB RATE 80'S WITH NO ECTOPY AT THIS TIME. PIV STARTED TO LEFT WRIST PER PT REQUEST FOR COMFORT. BLOOD TRANSFUSING WELL THROUGH THIS SITE, NO S/SX RXN TO BLOOD AT THIS TIME. HOSPITALIST MANUEL GAVE THIS RN ORDER FOR MAGNESIUM LEVEL TO BE DRAWN AND PO POTASSIUM 40MEQ TO BE GIVEN ONCE.
--- NOTE | 2019-05-28 11:27 | NUR ---
report to break RAGINI Bosch.
[2019-05-28] MEDS ORDERED: POTASSIUM CHLORIDE 20 MEQ TAB.ER.PRT PO ONE (11:30)
--- NOTE | 2019-05-28 11:31 | NUR ---
TASK RN: PT RESTING ON [place]ING. PER REPORT FROM [facility], PIV ASSESSED, PATENT. BLOOD INFUSING WITH NO COMPLICATIONS. FRANCESCA.
--- NOTE | 2019-05-28 12:08 | NUR ---
TASK RN: BEDSIDE REPORT TO RAGINI ASCENCIO.
--- NOTE | 2019-05-28 12:14 | NUR ---
ORDERS RECEIVED MD JACKSON TO REDRAW H/H AND TRANSFUSE WITH 1 U PRBC IF HEMOGLOBIN IS LESS THAN 7.
--- NOTE | 2019-05-28 12:25 | NUR ---
REPORT CALLED TO RECEIVING RAGINI HESS. BLOOD TRANSFUSION COMPLETE. PT A&O, RESPS EVEN AND UNLABORED. AFIB RATE 90'S WITH NO ECTOPY AT THIS TIME. PT DENIES PAIN. NEURO INTACT. PT HAS NO GI/ COMPLAINTS.
[2019-05-28] MEDS ORDERED: POTASSIUM CHLORIDE 20 MEQ TAB.ER.PRT ONE (12:26)
[2019-05-28 13:14] VITALS: BP 150/74
[2019-05-28 15:34] LABS: RAPID INFLUENZA A Negative (Negative); RAPID INFLUENZA B Negative (Negative)
[2019-05-28 16:08] VITALS: BP 126/69
[2019-05-28 18:39] LABS: OCCULT BLOOD POSITIVE (NEGATIVE)
[2019-05-28 20:13] VITALS: BP 121/57
[2019-05-28] MEDS: ATORVASTATIN 20 MG TABLET PO SCH (20:28)
[2019-05-28] MEDS ORDERED: ALBUTEROL/IPRATROPIUM 2.5MG/0.5MG, 3 ML NPPB PRN (23:00)
[2019-05-29] MEDS: HEPARIN 5,000 UNITS/ML, 1ML SQ SCH (00:21)
[2019-05-29 00:24] VITALS: BP 135/66
[2019-05-29 06:53] LABS: MEAN CORPUSCULAR HEMOGLOBIN 30.4 pg (27.0-34.8); MEAN CORPUSCULAR HGB CONC 31.7 g/dL (32.4-35.8); MEAN CORPUSCULAR VOLUME 95.7 fL (80-100); MEAN PLATELET VOLUME 7.3 fL (7.4-10.4); PLATELET COUNT 261 x10^3/uL (130-400); RED BLOOD COUNT 2.41 x10^6/uL (3.82-5.3); RED CELL DISTRIBUTION WIDTH 22.7 % (9.6-15.2)
[2019-05-29 06:59] LABS: ALANINE AMINOTRANSFERASE 14 U/L (12-78); ALBUMIN 2.7 g/dL (3.4-5.0); ANION GAP 6 mmol/L (5-15); CALCIUM 8.5 mg/dL (8.5-10.1); CHLORIDE 107 mmol/L (98-107); CREATININE 1.44 mg/dL (0.55-1.02)
[2019-05-29 07:02] LABS: ALKALINE PHOSPHATASE 73 U/L (45-117); BILIRUBIN,TOTAL 0.6 mg/dL (0.2-1.0); TOTAL PROTEIN 6.8 g/dL (6.4-8.2)
[2019-05-29 08:03] LABS: BASOPHILS # (AUTO) 0.03 x10^3/uL (0-0.1); BASOPHILS % (AUTO) 0 % (0-1); EOSINOPHILS % (AUTO) 3 % (1-7); LYMPHOCYTES # (AUTO) 0.76 x10^3/uL (1-3.4); LYMPHOCYTES % (AUTO) 8 % (22-44); MD SCAN; MONOCYTES # (AUTO) 0.95 x10^3/uL (0.2-0.8); MONOCYTES % (AUTO) 11 % (2-9); NEUTROPHILS # (AUTO) 7.04 x10^3/uL (1.8-6.8); NEUTROPHILS % (AUTO) 78 % (42-75)
[2019-05-29 08:13] VITALS: BP 127/70
[2019-05-29] MEDS: METOPROLOL SUCCINATE 100 MG TAB.ER.24H PO SCH ×2 (09:14→20:07)
[2019-05-29] MEDS: SERTRALINE 50MG TABLET PO SCH (09:14)
[2019-05-29] MEDS: PANTOPRAZOLE 40 MG IV IVPush SCH ×2 (09:15→20:07)
[2019-05-29] MEDS: FUROSEMIDE 40 MG/4 ML IV SCH ×2 (09:15→17:45)
[2019-05-29 10:27] LABS: INTERNATIONAL NORMALIZED RATIO 1.11 (0.93-1.1); PROTHROMBIN TIME 11.6 Seconds (9.6-11.5)
[2019-05-29 11:34] LABS: OCCULT BLOOD POSITIVE (NEGATIVE)
[2019-05-29] MEDS ORDERED: GOLYTELY 4,000ML ORAL.SOL PO ONE (13:00)
[2019-05-29 13:25] VITALS: BP 130/72
[2019-05-29 17:43] LABS: MEAN CORPUSCULAR HEMOGLOBIN 30.8 pg (27.0-34.8); MEAN CORPUSCULAR HGB CONC 32.5 g/dL (32.4-35.8); MEAN CORPUSCULAR VOLUME 94.9 fL (80-100); MEAN PLATELET VOLUME 7.1 fL (7.4-10.4); PLATELET COUNT 281 x10^3/uL (130-400); RED BLOOD COUNT 2.42 x10^6/uL (3.82-5.3); RED CELL DISTRIBUTION WIDTH 22.4 % (9.6-15.2)
[2019-05-29 17:50] LABS: ANISOCYTOSIS 2+; MD MORPH REVIEW ONLY; MICROCYTOSIS 1+
[2019-05-29 17:51] LABS: OVALOCYTES 1+; POLYCHROMASIA 1+
[2019-05-29 17:52] LABS: <PLATELET ESTIMATE> ADEQUATE; <PLT MORPHOLOGY> NORMAL PLT MORPH; BASOPHILS # (AUTO) 0.03 x10^3/uL (0-0.1); BASOPHILS % (AUTO) 0 % (0-1); EOSINOPHILS # (AUTO) 0.34 x10^3/uL (0-0.4); EOSINOPHILS % (AUTO) 4 % (1-7); LYMPHOCYTES # (AUTO) 0.79 x10^3/uL (1-3.4); LYMPHOCYTES % (AUTO) 8 % (22-44); MONOCYTES % (AUTO) 10 % (2-9); NEUTROPHILS % (AUTO) 78 % (42-75)
[2019-05-29 20:02] VITALS: BP 148/71
[2019-05-29] MEDS: ATORVASTATIN 20 MG TABLET PO SCH (20:07)
[2019-05-29] MEDS: OXYcodone/APAP 5/325MG TABLET PO PRN (23:50)
[2019-05-30 02:30] VITALS: BP 104/54
[2019-05-30] MEDS: FUROSEMIDE 40 MG/4 ML IV SCH ×2 (06:40→17:31)
[2019-05-30 06:59] LABS: BASOPHILS # (AUTO) 0.04 x10^3/uL (0-0.1); BASOPHILS % (AUTO) 0 % (0-1); EOSINOPHILS # (AUTO) 0.37 x10^3/uL (0-0.4); EOSINOPHILS % (AUTO) 5 % (1-7); LYMPHOCYTES # (AUTO) 0.89 x10^3/uL (1-3.4); LYMPHOCYTES % (AUTO) 11 % (22-44); MEAN CORPUSCULAR HEMOGLOBIN 30.3 pg (27.0-34.8); MEAN CORPUSCULAR HGB CONC 31.6 g/dL (32.4-35.8); MEAN CORPUSCULAR VOLUME 95.9 fL (80-100); MEAN PLATELET VOLUME 7.4 fL (7.4-10.4); MONOCYTES # (AUTO) 0.66 x10^3/uL (0.2-0.8); MONOCYTES % (AUTO) 8 % (2-9); NEUTROPHILS # (AUTO) 6.08 x10^3/uL (1.8-6.8); NEUTROPHILS % (AUTO) 76 % (42-75); PLATELET COUNT 291 x10^3/uL (130-400); RED BLOOD COUNT 2.46 x10^6/uL (3.82-5.3); RED CELL DISTRIBUTION WIDTH 21.9 % (9.6-15.2)
[2019-05-30 07:16] LABS: ALBUMIN 2.6 g/dL (3.4-5.0); ANION GAP 6 mmol/L (5-15); CALCIUM 8.5 mg/dL (8.5-10.1); CHLORIDE 106 mmol/L (98-107)
[2019-05-30 07:19] LABS: ALANINE AMINOTRANSFERASE 16 U/L (12-78); ALKALINE PHOSPHATASE 83 U/L (45-117); BILIRUBIN,TOTAL 0.7 mg/dL (0.2-1.0); CREATININE 1.43 mg/dL (0.55-1.02); TOTAL PROTEIN 6.8 g/dL (6.4-8.2)
[2019-05-30 08:03] LABS: MD SCAN
[2019-05-30 08:30] VITALS: BP 146/69
[2019-05-30] MEDS: PANTOPRAZOLE 40 MG IV IVPush SCH ×2 (09:08→21:09)
[2019-05-30] MEDS: METOPROLOL SUCCINATE 100 MG TAB.ER.24H PO SCH ×2 (09:09→21:10)
[2019-05-30] MEDS: SERTRALINE 50MG TABLET PO SCH (09:09)
[2019-05-30] MEDS ORDERED: PROPOFOL 10 MG/ML, 20ML ONE ×2 (10:10)
[2019-05-30] MEDS ORDERED: ALBUTEROL/IPRATROPIUM 2.5MG/0.5MG, 3 ML NPPB PRN (10:30)
[2019-05-30] MEDS ORDERED: ALBUTEROL SULFATE 2.5 MG/3 ML NPPB PRN (10:30)
[2019-05-30 12:08] VITALS: BP 150/74
[2019-05-30] MEDS: OXYcodone/APAP 5/325MG TABLET PO PRN ×2 (15:00→23:50)
[2019-05-30 17:10] LABS: BASOPHILS # (AUTO) 0.03 x10^3/uL (0-0.1); BASOPHILS % (AUTO) 0 % (0-1); EOSINOPHILS # (AUTO) 0.42 x10^3/uL (0-0.4); EOSINOPHILS % (AUTO) 5 % (1-7); LYMPHOCYTES % (AUTO) 8 % (22-44); MD NO; MEAN CORPUSCULAR HEMOGLOBIN 30.3 pg (27.0-34.8); MEAN CORPUSCULAR VOLUME 94.8 fL (80-100); MEAN PLATELET VOLUME 7.4 fL (7.4-10.4); MONOCYTES # (AUTO) 0.72 x10^3/uL (0.2-0.8); MONOCYTES % (AUTO) 8 % (2-9); NEUTROPHILS % (AUTO) 79 % (42-75); PLATELET COUNT 305 x10^3/uL (130-400); RED BLOOD COUNT 2.45 x10^6/uL (3.82-5.3); RED CELL DISTRIBUTION WIDTH 21.7 % (9.6-15.2)
[2019-05-30 19:44] VITALS: BP 135/66
[2019-05-30] MEDS: ATORVASTATIN 20 MG TABLET PO SCH (21:10)
[2019-05-31] VITALS (8 sets, daily range): BP systolic 94–144; BP diastolic 56–81
[2019-05-31 05:39] LABS: MEAN CORPUSCULAR HEMOGLOBIN 30.1 pg (27.0-34.8); MEAN CORPUSCULAR HGB CONC 31.6 g/dL (32.4-35.8); MEAN CORPUSCULAR VOLUME 95.2 fL (80-100); MEAN PLATELET VOLUME 7.6 fL (7.4-10.4); PLATELET COUNT 270 x10^3/uL (130-400); RED BLOOD COUNT 2.23 x10^6/uL (3.82-5.3); RED CELL DISTRIBUTION WIDTH 21.1 % (9.6-15.2)
[2019-05-31 05:46] LABS: CHLORIDE 105 mmol/L (98-107)
[2019-05-31 05:58] LABS: ALANINE AMINOTRANSFERASE 24 U/L (12-78); ALBUMIN 2.6 g/dL (3.4-5.0); ALKALINE PHOSPHATASE 107 U/L (45-117); ANION GAP 9 mmol/L (5-15); BILIRUBIN,TOTAL 0.5 mg/dL (0.2-1.0); CALCIUM 8.4 mg/dL (8.5-10.1); TOTAL PROTEIN 6.6 g/dL (6.4-8.2)
[2019-05-31 06:30] LABS: BASOPHILS # (AUTO) 0.05 x10^3/uL (0-0.1); BASOPHILS % (AUTO) 1 % (0-1); EOSINOPHILS # (AUTO) 0.39 x10^3/uL (0-0.4); EOSINOPHILS % (AUTO) 5 % (1-7); LYMPHOCYTES # (AUTO) 0.87 x10^3/uL (1-3.4); LYMPHOCYTES % (AUTO) 12 % (22-44); MONOCYTES # (AUTO) 0.59 x10^3/uL (0.2-0.8); MONOCYTES % (AUTO) 8 % (2-9); NEUTROPHILS # (AUTO) 5.33 x10^3/uL (1.8-6.8); NEUTROPHILS % (AUTO) 74 % (42-75)
[2019-05-31 06:31] LABS: MD SCAN
[2019-05-31] MEDS: PANTOPRAZOLE 40 MG IV IVPush SCH ×2 (09:17→22:01)
[2019-05-31] MEDS: SERTRALINE 50MG TABLET PO SCH (09:18)
[2019-05-31] MEDS: FUROSEMIDE 40 MG/4 ML IV SCH (09:18)
[2019-05-31] MEDS: METOPROLOL SUCCINATE 100 MG TAB.ER.24H PO SCH ×2 (09:19→22:00)
[2019-05-31] MEDS: POTASSIUM CHLORIDE 20 MEQ TAB.ER.PRT PO SCH (09:22)
[2019-05-31] MEDS: OXYcodone/APAP 5/325MG TABLET PO PRN ×2 (16:15→22:31)
[2019-05-31] MEDS: SUCRALFATE 1 GM TABLET PO SCH (16:15)
[2019-05-31 18:15] LABS: MEAN CORPUSCULAR HEMOGLOBIN 29.5 pg (27.0-34.8); MEAN CORPUSCULAR HGB CONC 31.4 g/dL (32.4-35.8); MEAN CORPUSCULAR VOLUME 93.8 fL (80-100); MEAN PLATELET VOLUME 7.4 fL (7.4-10.4); PLATELET COUNT 288 x10^3/uL (130-400); RED BLOOD COUNT 2.64 x10^6/uL (3.82-5.3); RED CELL DISTRIBUTION WIDTH 21.5 % (9.6-15.2)
[2019-05-31 18:49] LABS: BASOPHILS # (AUTO) 0.04 x10^3/uL (0-0.1); BASOPHILS % (AUTO) 1 % (0-1); EOSINOPHILS # (AUTO) 0.28 x10^3/uL (0-0.4); EOSINOPHILS % (AUTO) 4 % (1-7); LYMPHOCYTES # (AUTO) 0.77 x10^3/uL (1-3.4); LYMPHOCYTES % (AUTO) 11 % (22-44); MD SCAN; MONOCYTES # (AUTO) 0.64 x10^3/uL (0.2-0.8); MONOCYTES % (AUTO) 9 % (2-9); NEUTROPHILS # (AUTO) 5.65 x10^3/uL (1.8-6.8); NEUTROPHILS % (AUTO) 77 % (42-75)
[2019-05-31] MEDS: ATORVASTATIN 20 MG TABLET PO SCH (22:00)
[2019-06-01] MEDS: SUCRALFATE 1 GM TABLET PO SCH ×5 (00:44→22:53)
[2019-06-01 02:31] VITALS: BP 109/54
[2019-06-01 04:41] LABS: BASOPHILS # (AUTO) 0.03 x10^3/uL (0-0.1); BASOPHILS % (AUTO) 0 % (0-1); EOSINOPHILS # (AUTO) 0.37 x10^3/uL (0-0.4); EOSINOPHILS % (AUTO) 6 % (1-7); LYMPHOCYTES # (AUTO) 0.96 x10^3/uL (1-3.4); LYMPHOCYTES % (AUTO) 15 % (22-44); MD NO; MEAN CORPUSCULAR HEMOGLOBIN 29.5 pg (27.0-34.8); MEAN CORPUSCULAR HGB CONC 31.5 g/dL (32.4-35.8); MEAN CORPUSCULAR VOLUME 93.7 fL (80-100); MEAN PLATELET VOLUME 7.6 fL (7.4-10.4); MONOCYTES # (AUTO) 0.56 x10^3/uL (0.2-0.8); MONOCYTES % (AUTO) 9 % (2-9); NEUTROPHILS # (AUTO) 4.68 x10^3/uL (1.8-6.8); NEUTROPHILS % (AUTO) 71 % (42-75); PLATELET COUNT 265 x10^3/uL (130-400); RED BLOOD COUNT 2.54 x10^6/uL (3.82-5.3)
[2019-06-01 04:54] LABS: CHLORIDE 107 mmol/L (98-107)
[2019-06-01 05:01] LABS: ALANINE AMINOTRANSFERASE 21 U/L (12-78); ALBUMIN 2.6 g/dL (3.4-5.0); ALKALINE PHOSPHATASE 97 U/L (45-117); ANION GAP 5 mmol/L (5-15); BILIRUBIN,TOTAL 0.5 mg/dL (0.2-1.0); CALCIUM 8.3 mg/dL (8.5-10.1); CREATININE 1.31 mg/dL (0.55-1.02); TOTAL PROTEIN 6.6 g/dL (6.4-8.2)
[2019-06-01 08:43] VITALS: BP 147/76
[2019-06-01] MEDS: PANTOPRAZOLE 40 MG IV IVPush SCH ×2 (09:07→20:52)
[2019-06-01] MEDS: IRON SUCROSE COMPLEX 100MG/5ML IV SCH (09:07)
[2019-06-01] MEDS: FUROSEMIDE 40 MG/4 ML IV SCH (09:07)
[2019-06-01] MEDS: SERTRALINE 50MG TABLET PO SCH (09:07)
[2019-06-01] MEDS: METOPROLOL SUCCINATE 100 MG TAB.ER.24H PO SCH ×2 (09:08→20:52)
[2019-06-01] MEDS: POTASSIUM CHLORIDE 20 MEQ TAB.ER.PRT PO SCH (09:08)
[2019-06-01] MEDS ORDERED: LIDODERM 5% PATCH TD ONE (09:30)
[2019-06-01] MEDS: FEBUXOSTAT 40 MG TABLET PO SCH (11:22)
[2019-06-01] MEDS ORDERED: COLCHICINE 0.6 MG CAPSULE PO PRN (11:30)
[2019-06-01 13:18] VITALS: BP 144/74
[2019-06-01 17:21] LABS: BASOPHILS # (AUTO) 0.06 x10^3/uL (0-0.1); BASOPHILS % (AUTO) 1 % (0-1); EOSINOPHILS # (AUTO) 0.27 x10^3/uL (0-0.4); EOSINOPHILS % (AUTO) 4 % (1-7); LYMPHOCYTES # (AUTO) 0.85 x10^3/uL (1-3.4); LYMPHOCYTES % (AUTO) 11 % (22-44); MD NO; MEAN CORPUSCULAR HGB CONC 32.2 g/dL (32.4-35.8); MEAN CORPUSCULAR VOLUME 93.2 fL (80-100); MEAN PLATELET VOLUME 7.3 fL (7.4-10.4); MONOCYTES # (AUTO) 0.64 x10^3/uL (0.2-0.8); MONOCYTES % (AUTO) 9 % (2-9); NEUTROPHILS % (AUTO) 76 % (42-75); PLATELET COUNT 305 x10^3/uL (130-400); RED BLOOD COUNT 2.73 x10^6/uL (3.82-5.3); RED CELL DISTRIBUTION WIDTH 20.3 % (9.6-15.2)
[2019-06-01 20:00] VITALS: BP 158/75
[2019-06-01] MEDS: LIDODERM REMOVE PATCH NOTE XX SCH (20:30)
[2019-06-01] MEDS: ATORVASTATIN 20 MG TABLET PO SCH (20:52)
[2019-06-01] MEDS: OXYcodone/APAP 5/325MG TABLET PO PRN (23:44)
[2019-06-02 01:06] VITALS: BP 114/52
[2019-06-02 06:16] LABS: ALBUMIN 2.6 g/dL (3.4-5.0); ANION GAP 6 mmol/L (5-15); CALCIUM 8.6 mg/dL (8.5-10.1); CHLORIDE 106 mmol/L (98-107)
[2019-06-02 06:18] LABS: BASOPHILS # (AUTO) 0.04 x10^3/uL (0-0.1); BASOPHILS % (AUTO) 1 % (0-1); EOSINOPHILS # (AUTO) 0.28 x10^3/uL (0-0.4); EOSINOPHILS % (AUTO) 5 % (1-7); LYMPHOCYTES # (AUTO) 0.89 x10^3/uL (1-3.4); LYMPHOCYTES % (AUTO) 16 % (22-44); MD NO; MEAN CORPUSCULAR HEMOGLOBIN 29.3 pg (27.0-34.8); MEAN CORPUSCULAR VOLUME 91.4 fL (80-100); MEAN PLATELET VOLUME 6.9 fL (7.4-10.4); MONOCYTES # (AUTO) 0.52 x10^3/uL (0.2-0.8); MONOCYTES % (AUTO) 9 % (2-9); NEUTROPHILS # (AUTO) 4.01 x10^3/uL (1.8-6.8); NEUTROPHILS % (AUTO) 70 % (42-75); PLATELET COUNT 268 x10^3/uL (130-400); RED BLOOD COUNT 2.59 x10^6/uL (3.82-5.3); RED CELL DISTRIBUTION WIDTH 19.8 % (9.6-15.2)
[2019-06-02 06:20] LABS: ALANINE AMINOTRANSFERASE 18 U/L (12-78); ALKALINE PHOSPHATASE 94 U/L (45-117); BILIRUBIN,TOTAL 0.5 mg/dL (0.2-1.0); CREATININE 1.23 mg/dL (0.55-1.02); TOTAL PROTEIN 6.7 g/dL (6.4-8.2)
[2019-06-02 07:53] VITALS: BP 148/70
[2019-06-02] MEDS: PANTOPRAZOLE 40 MG IV IVPush SCH (08:57)
[2019-06-02] MEDS: POTASSIUM CHLORIDE 20 MEQ TAB.ER.PRT PO SCH (08:57)
[2019-06-02] MEDS: SUCRALFATE 1 GM TABLET PO SCH ×4 (08:57→21:38)
[2019-06-02] MEDS: SERTRALINE 50MG TABLET PO SCH (09:00)
[2019-06-02] MEDS: FEBUXOSTAT 40 MG TABLET PO SCH (09:00)
[2019-06-02] MEDS: IRON SUCROSE COMPLEX 100MG/5ML IV SCH (09:00)
[2019-06-02] MEDS: FUROSEMIDE 40 MG/4 ML IV SCH (09:00)
[2019-06-02] MEDS: METOPROLOL SUCCINATE 100 MG TAB.ER.24H PO SCH ×2 (09:00→21:38)
[2019-06-02] MEDS: LIDODERM 5% PATCH TD SCH (09:01)
[2019-06-02 14:52] VITALS: BP 112/61
[2019-06-02] MEDS: OXYcodone/APAP 5/325MG TABLET PO PRN ×2 (15:08→22:51)
[2019-06-02] MEDS: OMEPRAZOLE 20 MG CAPSULE.DR PO SCH (15:08)
[2019-06-02] MEDS ORDERED: RIVAROXABAN 20 MG TABLET PO SCH (17:00)
[2019-06-02 17:10] LABS: BASOPHILS # (AUTO) 0.08 x10^3/uL (0-0.1); BASOPHILS % (AUTO) 1 % (0-1); EOSINOPHILS % (AUTO) 5 % (1-7); LYMPHOCYTES # (AUTO) 0.83 x10^3/uL (1-3.4); LYMPHOCYTES % (AUTO) 12 % (22-44); MD NO; MEAN CORPUSCULAR HEMOGLOBIN 29.4 pg (27.0-34.8); MEAN CORPUSCULAR HGB CONC 31.5 g/dL (32.4-35.8); MEAN CORPUSCULAR VOLUME 93.5 fL (80-100); MEAN PLATELET VOLUME 7.4 fL (7.4-10.4); MONOCYTES # (AUTO) 0.68 x10^3/uL (0.2-0.8); MONOCYTES % (AUTO) 10 % (2-9); NEUTROPHILS # (AUTO) 4.78 x10^3/uL (1.8-6.8); NEUTROPHILS % (AUTO) 72 % (42-75); PLATELET COUNT 303 x10^3/uL (130-400); RED BLOOD COUNT 2.81 x10^6/uL (3.82-5.3); RED CELL DISTRIBUTION WIDTH 20.2 % (9.6-15.2)
[2019-06-02] MEDS: LIDODERM REMOVE PATCH NOTE XX SCH (20:30)
[2019-06-02 20:42] VITALS: BP 128/61
[2019-06-02] MEDS: ATORVASTATIN 20 MG TABLET PO SCH (21:38)
[2019-06-03 01:30] VITALS: BP 118/66
[2019-06-03] MEDS: OMEPRAZOLE 20 MG CAPSULE.DR PO SCH (05:02)
[2019-06-03 06:19] LABS: ALBUMIN 2.7 g/dL (3.4-5.0); ANION GAP 8 mmol/L (5-15); CALCIUM 8.6 mg/dL (8.5-10.1); CHLORIDE 108 mmol/L (98-107)
[2019-06-03 06:23] LABS: ALANINE AMINOTRANSFERASE 19 U/L (12-78); ALKALINE PHOSPHATASE 118 U/L (45-117); BILIRUBIN,TOTAL 0.4 mg/dL (0.2-1.0); CREATININE 1.31 mg/dL (0.55-1.02); TOTAL PROTEIN 6.9 g/dL (6.4-8.2)
[2019-06-03 06:24] LABS: BASOPHILS # (AUTO) 0.04 x10^3/uL (0-0.1); BASOPHILS % (AUTO) 1 % (0-1); EOSINOPHILS # (AUTO) 0.29 x10^3/uL (0-0.4); EOSINOPHILS % (AUTO) 6 % (1-7); LYMPHOCYTES # (AUTO) 0.94 x10^3/uL (1-3.4); LYMPHOCYTES % (AUTO) 18 % (22-44); MD NO; MEAN CORPUSCULAR HEMOGLOBIN 29.5 pg (27.0-34.8); MEAN CORPUSCULAR HGB CONC 31.5 g/dL (32.4-35.8); MEAN CORPUSCULAR VOLUME 93.8 fL (80-100); MEAN PLATELET VOLUME 7.4 fL (7.4-10.4); MONOCYTES # (AUTO) 0.49 x10^3/uL (0.2-0.8); MONOCYTES % (AUTO) 9 % (2-9); NEUTROPHILS # (AUTO) 3.54 x10^3/uL (1.8-6.8); NEUTROPHILS % (AUTO) 67 % (42-75); PLATELET COUNT 285 x10^3/uL (130-400); RED BLOOD COUNT 2.75 x10^6/uL (3.82-5.3); RED CELL DISTRIBUTION WIDTH 20.2 % (9.6-15.2)
[2019-06-03] MEDS: FEBUXOSTAT 40 MG TABLET PO SCH (08:18)
[2019-06-03] MEDS: SUCRALFATE 1 GM TABLET PO SCH ×2 (08:18→11:42)
[2019-06-03] MEDS: METOPROLOL SUCCINATE 100 MG TAB.ER.24H PO SCH (08:18)
[2019-06-03] MEDS: POTASSIUM CHLORIDE 20 MEQ TAB.ER.PRT PO SCH (08:18)
[2019-06-03] MEDS: SERTRALINE 50MG TABLET PO SCH (08:19)
[2019-06-03] MEDS: LIDODERM 5% PATCH TD SCH (08:19)
[2019-06-03] MEDS: IRON SUCROSE COMPLEX 100MG/5ML IV SCH (08:19)
[2019-06-03 08:25] VITALS: BP 145/80
[2019-06-03] MEDS ORDERED: FUROSEMIDE 40 MG TABLET PO SCH (09:00)
[2019-06-03] MEDS ORDERED: SUCR1TAB33 PO (10:51)
[2019-06-03] MEDS ORDERED: OMEP-110 PO (10:51)
[2019-06-03] MEDS: OXYcodone/APAP 5/325MG TABLET PO PRN (11:42)
== END 2019-06-03 13:13 | disposition home or self-care (01) | DRG 377 ==
LOC: ED 21:54 → EDIP 23:04 → 5SO 05-28 12:40 → DCLOUNGE 06-03 12:58
PROVIDERS: ADMIT Internal Medicine; ATTEND Internal Medicine
PROC: 30233N1 Transfusion of Nonautologous Red Blood Cells into Peripheral Vein, Percutaneous Approach (ICD-10-PCS; principal; 2019-05-27)
PROC: 0DB68ZZ Excision of Stomach, Via Natural or Artificial Opening Endoscopic (ICD-10-PCS; 2019-05-30)
DX: K92.2 Gastrointestinal hemorrhage, unspecified (principal); I50.33 Acute on chronic diastolic (congestive) heart failure; I13.0 Hypertensive heart and chronic kidney disease with heart failure and stage 1 through stage 4 chronic kidney disease, or unspecified chronic kidney disease; J96.10 Chronic respiratory failure, unspecified whether with hypoxia or hypercapnia; I48.20 Chronic atrial fibrillation, unspecified; D68.59 Other primary thrombophilia; D62 Acute posthemorrhagic anemia; Z68.42 Body mass index [BMI] 45.0-49.9, adult; F33.9 Major depressive disorder, recurrent, unspecified; D50.9 Iron deficiency anemia, unspecified; E11.22 Type 2 diabetes mellitus with diabetic chronic kidney disease; E66.01 Morbid (severe) obesity due to excess calories; E87.6 Hypokalemia; F41.9 Anxiety disorder, unspecified; I25.10 Atherosclerotic heart disease of native coronary artery without angina pectoris; I25.2 Old myocardial infarction; J44.9 Chronic obstructive pulmonary disease, unspecified; K31.7 Polyp of stomach and duodenum; N18.3 Chronic kidney disease, stage 3 (moderate); Z79.01 Long term (current) use of anticoagulants; Z82.49 Family history of ischemic heart disease and other diseases of the circulatory system; Z87.891 Personal history of nicotine dependence; Z95.3 Presence of xenogenic heart valve; Z90.49 Acquired absence of other specified parts of digestive tract; I11.0 Hypertensive heart disease with heart failure
CPT/HCPCS: 36415; 36430; 71045; 80053; 82272; 82607; 82728; 83540; 83550; 83690; 83735; 83880; 84100; 84443; 84484; 85014; 85018; 85025; 85610; 85730; 86850; 86870; 86900; 86902; 86922; 86923; 87400; 88305; 93005; G0378; J1644; J1756; J1940; J2405; J2704; Q0162; A4648; C9113; P9016

== ENCOUNTER → 2019-08-11 | Outpatient (CLI) | payer MEDICARE ==
[~2019-08-11] MED LIST changes: +FENO145T19 PO; -FENO145T30 PO; +FERR-51 PO; -GUAI400T66 PO; +GUAI400T81 PO; +OMEP-110 PO; +SUCR1TAB33 PO
== END | disposition home or self-care (01) ==
LOC: CFH 08:21
PROVIDERS: ATTEND Internal Medicine Hematology & Oncology
DX: K76.0 Fatty (change of) liver, not elsewhere classified (principal); N20.0 Calculus of kidney; D64.9 Anemia, unspecified; Z90.49 Acquired absence of other specified parts of digestive tract
CPT/HCPCS: 76700

== ENCOUNTER 2019-08-18 05:55 | Day surgery (SDC) | payer MEDICARE ==
[~2019-08-18] VITALS: Ht 170.2 cm; Wt 122.8 kg
[2019-08-18] MEDS ORDERED: SODIUM CHLORIDE 0.9% 1,000 ML IV SCH (07:05)
[2019-08-18] MEDS ORDERED: METO100T5 PO (07:07)
[2019-08-18 07:38] VITALS: BP 145/79
[2019-08-18 07:47] LABS: BASOPHILS % (AUTO) 1 % (0-1); EOSINOPHILS # (AUTO) 0.35 x10^3/uL (0-0.4); EOSINOPHILS % (AUTO) 4 % (1-7); LYMPHOCYTES # (AUTO) 1.04 x10^3/uL (1-3.4); LYMPHOCYTES % (AUTO) 13 % (22-44); MD NO; MEAN CORPUSCULAR HEMOGLOBIN 27.7 pg (27.0-34.8); MEAN CORPUSCULAR HGB CONC 31.7 g/dL (32.4-35.8); MEAN CORPUSCULAR VOLUME 87.6 fL (80-100); MEAN PLATELET VOLUME 7.6 fL (7.4-10.4); MONOCYTES # (AUTO) 0.66 x10^3/uL (0.2-0.8); MONOCYTES % (AUTO) 8 % (2-9); NEUTROPHILS # (AUTO) 6.03 x10^3/uL (1.8-6.8); NEUTROPHILS % (AUTO) 74 % (42-75); PLATELET COUNT 263 x10^3/uL (130-400); RED BLOOD COUNT 3.56 x10^6/uL (3.82-5.3); RED CELL DISTRIBUTION WIDTH 16.5 % (9.6-15.2)
[2019-08-18] MEDS ORDERED: FLUMAZENIL 0.1 MG/1 ML, 5ML ONE (07:50)
[2019-08-18] MEDS ORDERED: MIDAZOLAM 1 MG/ML, 5ML ONE (07:50)
[2019-08-18] MEDS ORDERED: FENTANYL PF 100 MCG/2ML ONE (07:50)
[2019-08-18] MEDS ORDERED: NALOXONE 1 MG/ML, 2ML ONE (07:51)
== END 2019-08-18 11:05 | disposition home or self-care (01) ==
LOC: OUT 05:55
PROVIDERS: ATTEND Internal Medicine Hematology & Oncology
DX: D64.9 Anemia, unspecified (principal); E11.22 Type 2 diabetes mellitus with diabetic chronic kidney disease; I13.0 Hypertensive heart and chronic kidney disease with heart failure and stage 1 through stage 4 chronic kidney disease, or unspecified chronic kidney disease; N18.3 Chronic kidney disease, stage 3 (moderate); I50.33 Acute on chronic diastolic (congestive) heart failure; I48.20 Chronic atrial fibrillation, unspecified; F33.9 Major depressive disorder, recurrent, unspecified; E78.5 Hyperlipidemia, unspecified; J96.11 Chronic respiratory failure with hypoxia; I25.10 Atherosclerotic heart disease of native coronary artery without angina pectoris; D68.69 Other thrombophilia; M81.0 Age-related osteoporosis without current pathological fracture; K21.9 Gastro-esophageal reflux disease without esophagitis; G47.33 Obstructive sleep apnea (adult) (pediatric); E66.01 Morbid (severe) obesity due to excess calories; Z68.41 Body mass index [BMI] 40.0-44.9, adult; Z79.01 Long term (current) use of anticoagulants; Z79.891 Long term (current) use of opiate analgesic; Z79.899 Other long term (current) drug therapy; Z87.891 Personal history of nicotine dependence; Z88.8 Allergy status to other drugs, medicaments and biological substances; Z91.041 Radiographic dye allergy status; Z91.013 Allergy to seafood; Z95.0 Presence of cardiac pacemaker; Z98.51 Tubal ligation status; Z90.49 Acquired absence of other specified parts of digestive tract; Z98.890 Other specified postprocedural states; Z82.49 Family history of ischemic heart disease and other diseases of the circulatory system; Z83.3 Family history of diabetes mellitus; Z80.3 Family history of malignant neoplasm of breast
CPT/HCPCS: 36415; 38222; 77012; 85025; 85060; 85097; 88237; 88264; 88280; 88305; 88311; 88313; 99156; 99157; J2250; J3010; J7030; J2310

== ENCOUNTER 2020-01-10 14:39 | Outpatient (CLI) | payer MEDICARE ==
[~2020-01-10 14:39] MED LIST changes: -BUSP7.5T3 PO; +BUSP7.5T5 PO; +HYDR-3246 PO; -HYDR-36 PO; +METO100T5 PO; -PANT40TA5 PO; +PANT40TA6 PO
[2020-01-10] MEDS ORDERED: GADOTERATE 10 MMOL/20 ML SYR ONE (15:49)
== END 2020-01-10 23:59 | disposition home or self-care (01) ==
LOC: RAD 14:39 → EDSTATUS 15:15 → RAD 23:59
PROVIDERS: ATTEND Nurse Practitioner Family
DX: Z11.59 Encounter for screening for other viral diseases (principal); G93.89 Other specified disorders of brain; R47.81 Slurred speech
CPT/HCPCS: 36415; 70553; 87635; A9575

== ENCOUNTER 2020-09-27 10:16 | Outpatient (CLI) | payer MEDICARE ==
[~2020-09-27 10:16] MED LIST changes: +AMLO-211 PO; -AMLO10TA8 PO; -ASPI-515 PO; +ASPI-963 PO; -DEXT-230 PO; +DEXT4TAB31 PO; -FOLI-17 PO; +FOLI1TAB32 PO; -HYDR-3246 PO; +HYDR-3248 PO; -LISI40TA PO; +LISI40TA9 PO; -OMEP40CA42 PO; +OMEP40CA8 PO
== END 2020-09-27 23:59 | disposition home or self-care (01) ==
LOC: CFH 10:16
PROVIDERS: ATTEND Internal Medicine Nephrology
DX: N28.1 Cyst of kidney, acquired (principal); M10.9 Gout, unspecified; R80.9 Proteinuria, unspecified; I12.9 Hypertensive chronic kidney disease with stage 1 through stage 4 chronic kidney disease, or unspecified chronic kidney disease; N18.30 Chronic kidney disease, stage 3 unspecified; D50.9 Iron deficiency anemia, unspecified; E66.3 Overweight; Z86.39 Personal history of other endocrine, nutritional and metabolic disease
CPT/HCPCS: 76770

== ENCOUNTER 2020-10-31 18:03 | Inpatient (IN) | payer MEDICARE ==
[~2020-10-31] VITALS: Ht 170.2 cm; Wt 115.5 kg
[~2020-10-31 18:03] MED LIST changes: +OMEP40CA42 PO; -OMEP40CA8 PO
[2020-10-31 19:15] LABS: BASOPHILS % (AUTO) 1 % (0-1); EOSINOPHILS % (AUTO) 3 % (1-7); LYMPHOCYTES % (AUTO) 10 % (22-44); MEAN CORPUSCULAR HGB CONC 30.8 g/dL (32.4-35.8); MEAN PLATELET VOLUME 7.3 fL (7.4-10.4); MONOCYTES % (AUTO) 9 % (2-9); NEUTROPHILS % (AUTO) 78 % (42-75); PLATELET COUNT 287 x10^3/uL (130-400); RED BLOOD COUNT 2.58 x10^6/uL (3.82-5.3); RED CELL DISTRIBUTION WIDTH 17.1 % (9.6-15.2)
[2020-10-31 19:17] LABS: MD NO
[2020-10-31 19:23] LABS: ALANINE AMINOTRANSFERASE 22 U/L (12-78); ALBUMIN 3.2 g/dL (3.4-5.0); ANION GAP 5 mmol/L (5-15); CALCIUM 9.5 mg/dL (8.5-10.1); CHLORIDE 111 mmol/L (98-107); CREATININE 1.64 mg/dL (0.55-1.02)
[2020-10-31 19:26] LABS: ALKALINE PHOSPHATASE 88 U/L (45-117); BILIRUBIN,TOTAL 0.3 mg/dL (0.2-1.0); TOTAL PROTEIN 7.5 g/dL (6.4-8.2)
--- NOTE | 2020-10-31 19:32 | NUR ---
CALL FROM BLOOD BANK, PER BLOOD BANK STAFF PT HAS MULTIPLE ANTIBODIES AND IF BLOOD TRANSFUSION NEEDED IT WILL TAKE LONGER TO FIND COMPATIBILITY, UNLESS BLOOD IS REQUIRED EMERGENTLY, AN EMERGENCY RELEASE WAIVER CAN BE SIGNED BY THE ORDERING MD.
[2020-10-31] MEDS ORDERED: SODIUM CHLORIDE 0.9% 250 ML IV SCH (20:00)
[2020-10-31 20:52] LABS: TROPONIN I < 0.015 ng/mL (0.000-0.045)
[2020-10-31] MEDS ORDERED: FUROSEMIDE 40 MG/4 ML IV ONE ×2 (21:00→21:30)
--- NOTE | 2020-10-31 21:26 | NUR ---
Report given to Olivia EID
[2020-10-31] MEDS ORDERED: ONDANSETRON ODT 4 MG PO PRN (21:30)
[2020-10-31] MEDS ORDERED: OXYcodone IR 5MG TABLET PO PRN (21:30)
[2020-10-31] MEDS ORDERED: ONDANSETRON 2MG/ML, 2ML IVPush PRN (21:30)
[2020-10-31] MEDS ORDERED: POLYETHYLENE GLYCOL 17 GM PACKET PO PRN (21:30)
[2020-10-31] MEDS ORDERED: BISACODYL 10 MG SUPP PR PRN (21:30)
[2020-10-31] MEDS ORDERED: PROMETHAZINE 25 MG/ML, 1ML IM PRN (21:30)
[2020-10-31] MEDS ORDERED: DOCUSATE 100 MG CAPSULE PO PRN (21:30)
[2020-10-31] MEDS ORDERED: hydrALAzine 20 MG/ML, 1ML IVPush PRN (21:30)
[2020-10-31] MEDS ORDERED: METOPROLOL 1 MG/ML, 5ML IVPush PRN (21:30)
[2020-10-31 21:47] VITALS: BP 149/69
[2020-10-31 23:16] VITALS: BP 143/78
[2020-10-31 23:34] VITALS: BP 148/74
[2020-10-31 23:53] LABS: MICROSCOPIC AUTO
[2020-11-01] VITALS (10 sets, daily range): BP systolic 126–166; BP diastolic 60–81
[2020-11-01 02:49] LABS: TROPONIN I < 0.015 ng/mL (0.000-0.045)
[2020-11-01] MEDS ORDERED: FUROSEMIDE 40 MG/4 ML IV ONE (06:30)
[2020-11-01 07:48] LABS: BASOPHILS % (AUTO) 1 % (0-1); EOSINOPHILS % (AUTO) 4 % (1-7); LYMPHOCYTES % (AUTO) 10 % (22-44); MEAN CORPUSCULAR HEMOGLOBIN 27.3 pg (27.0-34.8); MEAN CORPUSCULAR HGB CONC 32.1 g/dL (32.4-35.8); MEAN PLATELET VOLUME 7.2 fL (7.4-10.4); MONOCYTES % (AUTO) 9 % (2-9); NEUTROPHILS % (AUTO) 77 % (42-75); PLATELET COUNT 266 x10^3/uL (130-400); RED BLOOD COUNT 3.13 x10^6/uL (3.82-5.3); RED CELL DISTRIBUTION WIDTH 17.2 % (9.6-15.2)
[2020-11-01 07:57] LABS: MD NO
[2020-11-01 08:01] LABS: ALBUMIN 3.2 g/dL (3.4-5.0); ANION GAP 6 mmol/L (5-15); CALCIUM 9.3 mg/dL (8.5-10.1); CHLORIDE 111 mmol/L (98-107)
[2020-11-01 08:04] LABS: ALANINE AMINOTRANSFERASE 20 U/L (12-78); ALKALINE PHOSPHATASE 79 U/L (45-117); BILIRUBIN,TOTAL 0.6 mg/dL (0.2-1.0); CHOL/HDL RATIO 2.5; CHOLESTEROL, TOTAL 110 mg/dL (140-239); CREATININE 1.54 mg/dL (0.55-1.02); HDL CHOL % 40 % (28-40); HDL CHOLESTEROL (DIRECT) 44 mg/dL (40-60); LDL CHOLESTEROL,CALCULATED 43 mg/dL (54-169); TOTAL PROTEIN 7.6 g/dL (6.4-8.2); TRIGLYCERIDES 114 mg/dL (50-200); TROPONIN I < 0.015 ng/mL (0.000-0.045); VLDL CHOLESTEROL 23 mg/dL (0-25)
[2020-11-01] MEDS ORDERED: RIVAROXABAN 15 MG TABLET PO SCH (09:00)
[2020-11-01] MEDS ORDERED: LISI-606 PO (14:50)
[2020-11-01] MEDS ORDERED: OXYC-302 PO (14:50)
[2020-11-01] MEDS ORDERED: FEBU80TA3 PO (14:50)
[2020-11-01] MEDS ORDERED: FURO-92 PO (14:50)
[2020-11-01] MEDS ORDERED: ERGO500017 PO (14:50)
[2020-11-01] MEDS ORDERED: SERT100T PO (14:50)
[2020-11-01] MEDS ORDERED: LATA7.5D EACHEYE (14:50)
[2020-11-02 01:06] VITALS: BP 155/62
[2020-11-02 07:04] VITALS: BP 158/81
[2020-11-02] MEDS ORDERED: OXYcodone/APAP 5/325MG TABLET PO PRN (09:30)
[2020-11-02] MEDS ORDERED: BUSPIRONE 5 MG TABLET PO SCH (09:30)
[2020-11-02] MEDS: METOPROLOL SUCCINATE 100 MG TAB.ER.24H PO SCH ×2 (09:40→20:33)
[2020-11-02] MEDS: LISINOPRIL 5 MG TABLET PO SCH (09:40)
[2020-11-02] MEDS: SERTRALINE 100MG TABLET PO SCH (09:40)
[2020-11-02] MEDS: BUSPIRONE 5 MG TABLET PO SCH ×2 (09:40→20:33)
[2020-11-02 14:05] VITALS: BP 130/71
[2020-11-02] MEDS: FUROSEMIDE 40 MG TABLET PO SCH (14:53)
[2020-11-02] MEDS ORDERED: MOVIPREP POWDER 1 PREP KIT PO ONE (18:00)
[2020-11-02 20:29] VITALS: BP 161/87
[2020-11-02] MEDS: LATANOPROST OPHTH 0.005%, 2.5ML EACHEYE SCH (20:32)
[2020-11-03 01:56] VITALS: BP 147/68
[2020-11-03] MEDS: ACETAMINOPHEN 325 MG TABLET PO PRN (04:02)
[2020-11-03 05:18] LABS: BASOPHILS % (AUTO) 1 % (0-1); EOSINOPHILS % (AUTO) 4 % (1-7); LYMPHOCYTES % (AUTO) 11 % (22-44); MEAN CORPUSCULAR HEMOGLOBIN 27.8 pg (27.0-34.8); MEAN PLATELET VOLUME 6.9 fL (7.4-10.4); MONOCYTES % (AUTO) 9 % (2-9); NEUTROPHILS % (AUTO) 75 % (42-75); PLATELET COUNT 253 x10^3/uL (130-400); RED BLOOD COUNT 3.03 x10^6/uL (3.82-5.3); RED CELL DISTRIBUTION WIDTH 17.3 % (9.6-15.2)
[2020-11-03 05:25] LABS: MD NO
[2020-11-03 05:29] LABS: ANION GAP 4 mmol/L (5-15); CALCIUM 9.4 mg/dL (8.5-10.1); CHLORIDE 114 mmol/L (98-107); CREATININE 1.47 mg/dL (0.55-1.02)
[2020-11-03 07:06] VITALS: BP 161/77
[2020-11-03] MEDS: METOPROLOL SUCCINATE 100 MG TAB.ER.24H PO SCH ×2 (07:52→21:18)
[2020-11-03] MEDS: LISINOPRIL 5 MG TABLET PO SCH (07:52)
[2020-11-03] MEDS: SERTRALINE 100MG TABLET PO SCH (07:53)
[2020-11-03] MEDS: BUSPIRONE 5 MG TABLET PO SCH ×2 (07:53→21:18)
[2020-11-03] MEDS: FUROSEMIDE 40 MG TABLET PO SCH (07:53)
[2020-11-03] MEDS ORDERED: PROPOFOL 50 ML ONE (11:18)
[2020-11-03] MEDS ORDERED: PROPOFOL 10 MG/ML, 20ML ONE (11:18)
[2020-11-03] MEDS ORDERED: DIPHENHYDRAMINE 50 MG/ML, 1ML IVPush PRN (11:30)
[2020-11-03] MEDS ORDERED: LABETALOL 5MG/ML, 20ML IV PRN (11:30)
[2020-11-03] MEDS ORDERED: EPHEDRINE 50 MG/ML, 1ML IM PRN (11:30)
[2020-11-03] MEDS ORDERED: EPHEDRINE 50 MG/ML, 1ML IVPush PRN (11:30)
[2020-11-03] MEDS ORDERED: ONDANSETRON 2MG/ML, 2ML IVPush PRN (11:30)
[2020-11-03] MEDS ORDERED: DIAZEPAM 5 MG/ML, 2ML IVPush PRN (11:30)
[2020-11-03] MEDS ORDERED: FENTANYL PF 100 MCG/2ML IV PRN (11:30)
[2020-11-03] MEDS ORDERED: PROMETHAZINE 25 MG/ML, 1ML IVPush PRN (11:30)
[2020-11-03 13:22] VITALS: BP 148/85
[2020-11-03] MEDS: LATANOPROST OPHTH 0.005%, 2.5ML EACHEYE SCH (21:00)
[2020-11-03 21:06] VITALS: BP 162/74
[2020-11-04 02:14] VITALS: BP 176/90
[2020-11-04 02:36] VITALS: BP 160/79
[2020-11-04 05:33] LABS: BASOPHILS % (AUTO) 1 % (0-1); EOSINOPHILS % (AUTO) 4 % (1-7); LYMPHOCYTES % (AUTO) 12 % (22-44); MEAN CORPUSCULAR HGB CONC 32.6 g/dL (32.4-35.8); MEAN PLATELET VOLUME 7.1 fL (7.4-10.4); MONOCYTES % (AUTO) 10 % (2-9); NEUTROPHILS % (AUTO) 73 % (42-75); PLATELET COUNT 287 x10^3/uL (130-400); RED BLOOD COUNT 3.39 x10^6/uL (3.82-5.3); RED CELL DISTRIBUTION WIDTH 17.4 % (9.6-15.2)
[2020-11-04 05:34] LABS: MD NO
[2020-11-04] MEDS: ACETAMINOPHEN 325 MG TABLET PO PRN (06:18)
[2020-11-04 07:07] VITALS: BP 154/79
[2020-11-04] MEDS: BUSPIRONE 5 MG TABLET PO SCH (09:12)
[2020-11-04] MEDS: LISINOPRIL 5 MG TABLET PO SCH (09:12)
[2020-11-04] MEDS: FUROSEMIDE 40 MG TABLET PO SCH (09:13)
[2020-11-04] MEDS: METOPROLOL SUCCINATE 100 MG TAB.ER.24H PO SCH (09:13)
[2020-11-04] MEDS: SERTRALINE 100MG TABLET PO SCH (09:13)
[2020-11-04 12:38] VITALS: BP 165/82
[2020-11-04] MEDS ORDERED: OMEP20TA62 PO (13:19)
== END 2020-11-04 15:44 | disposition home or self-care (01) | DRG 377 ==
LOC: ED 20:15 → EDIP 20:25 → 4EST 21:44 → DCLOUNGE 11-04 15:39
PROVIDERS: ADMIT Internal Medicine; ATTEND Internal Medicine
PROC: 30233N1 Transfusion of Nonautologous Red Blood Cells into Peripheral Vein, Percutaneous Approach (ICD-10-PCS; principal; 2020-10-31)
PROC: 0DB98ZX Excision of Duodenum, Via Natural or Artificial Opening Endoscopic, Diagnostic (ICD-10-PCS; 2020-11-03)
PROC: 0DB68ZX Excision of Stomach, Via Natural or Artificial Opening Endoscopic, Diagnostic (ICD-10-PCS; 2020-11-03)
PROC: 0DJD8ZZ Inspection of Lower Intestinal Tract, Via Natural or Artificial Opening Endoscopic (ICD-10-PCS; 2020-11-03)
PROC: 0W3P8ZZ Control Bleeding in Gastrointestinal Tract, Via Natural or Artificial Opening Endoscopic (ICD-10-PCS; 2020-11-03)
DX: K31.811 Angiodysplasia of stomach and duodenum with bleeding (principal); I50.33 Acute on chronic diastolic (congestive) heart failure; D62 Acute posthemorrhagic anemia; J96.10 Chronic respiratory failure, unspecified whether with hypoxia or hypercapnia; I13.0 Hypertensive heart and chronic kidney disease with heart failure and stage 1 through stage 4 chronic kidney disease, or unspecified chronic kidney disease; I48.20 Chronic atrial fibrillation, unspecified; D68.32 Hemorrhagic disorder due to extrinsic circulating anticoagulants; E66.01 Morbid (severe) obesity due to excess calories; E11.22 Type 2 diabetes mellitus with diabetic chronic kidney disease; N18.30 Chronic kidney disease, stage 3 unspecified; F32.9 Major depressive disorder, single episode, unspecified; R35.0 Frequency of micturition; Z20.822 Contact with and (suspected) exposure to COVID-19; I25.10 Atherosclerotic heart disease of native coronary artery without angina pectoris; J44.9 Chronic obstructive pulmonary disease, unspecified; Z79.01 Long term (current) use of anticoagulants; Z82.49 Family history of ischemic heart disease and other diseases of the circulatory system; Z95.0 Presence of cardiac pacemaker; Z68.39 Body mass index [BMI] 39.0-39.9, adult; Z87.891 Personal history of nicotine dependence; Z95.1 Presence of aortocoronary bypass graft; Z95.3 Presence of xenogenic heart valve; Z98.51 Tubal ligation status; Z90.49 Acquired absence of other specified parts of digestive tract; Z91.013 Allergy to seafood
CPT/HCPCS: 36415; 36430; 71045; 80048; 80053; 80061; 81001; 83036; 83735; 84100; 84443; 84484; 85025; 86850; 86900; 86902; 86922; 86923; 87635; 88305; 93005; 93306; 99285; G0378; J1940; J2704; P9016